=== PATIENT | male | born 1935 | race Caucasian/White ===

== ENCOUNTER 2019-10-27 15:44 | Emergency (ER) | payer OTHER ==
--- OUTSIDE RECORDS SUMMARY | 2019-10-27 15:46 | XMS REPORT ---
:1935 [facility] Address [address] [place] [address] [address] [place] [address] Care Team Providers Name Role Phone Unavailable Unavailable Unavailable Problems This patient has no known problems. Allergies, Adverse Reactions, Alerts This patient has no known allergies or adverse reactions. Medications This patient has no known medications.
[2019-10-27] MEDS ORDERED: ALBUTEROL 2.5 MG/3 ML NEB SOL ONE (16:15)
[2019-10-27] MEDS ORDERED: FUROSEMIDE 40 MG/4 ML VIAL ONE (16:16)
[2019-10-27] MEDS ORDERED: IPRATROPIUM BROM 0.5MG/2.5ML ONE (16:16)
[2019-10-27 16:37] LABS: Absolute Lymphocytes (CBC) 1.2 K/uL (0.7-4.9); Basophils % 0.2 % (0-1.3); Hematocrit 31.6 % (39.6-49.0); Lymphocytes % 9.8 % (15.3-44.8); MPV 8.6 fL (7.6-11.3)
[2019-10-27 16:38] LABS: Protime INR 1.66
[2019-10-27 16:59] LABS: ALT/SGPT 21 U/L (12-78); AST/SGOT 28 U/L (15-37); Alkaline Phosphatase 92 U/L (45-117); BUN Blood Urea Nitrogen 22 mg/dL (7-18); Bicarbonate 31 mmol/L (21-32); Bilirubin Direct 0.2 mg/dL (0-0.2); Bilirubin Total 0.7 mg/dL (0.2-1.0); Glucose Level 150 mg/dL (74-106); NT PRO-BNP 103 pg/mL (<450); Potassium 4.6 mmol/L (3.5-5.1); Protein, Total 6.6 g/dL (6.4-8.2); Sodium Level 140 mmol/L (136-145); Troponin (Emerg Dept Use Only) < 0.02 ng/mL (0.0-0.045)
--- NOTE | 2019-10-27 17:07 | RAD REPORT ---
EXAM DESCRIPTION: RAD - Chest Single View - 10/27/2019 4:22 pm CLINICAL HISTORY: Shortness of breath COMPARISON: None. TECHNIQUE: AP portable chest image was obtained 1618 hours . FINDINGS: Lung volumes are low. Portable technique and large body habitus contribute to limited visu alization. No focal mass or consolidation. Significant failure or volume overload are not suspected. Defibrillator is in place. Interstitial markings are prominent. On a baseline exam mild edema or infi ltrate cannot be excluded. Heart and vasculature are normal. No measurable pleural effusion and no pn eumothorax. No acute bony abnormality seen. No acute aortic findings suspected. IMPRESSION: Baseline exam shows prominent interstitial pattern. No focal mass or consolidation. Mild interstitial edema or infiltrate not excluded.
--- NOTE | 2019-10-27 18:38 | ER ---
Nurse's Notes [facility] Name: Tim Noriega Age: 84 yrs Sex: Male : 1935 Arrival Date: 10/27/2019 Time: 15:46 Bed 6 Private MD: Diagnosis: Chronic obstructive pulmonary disease with (acute) exacerbation Presentation: 10/27 15:48 Presenting complaint: Patient states: Increased pedal edema and shortness of breath x 3 ss days. Denies fever. Transition of care: patient was not received from another setting of care. Initial Sepsis Screen: Does the patient meet any 2 criteria? RR > 20 per min. HR > 90 bpm. Does the patient have a suspected source of infection? No. Patient's initial sepsis screen is negative. 15:48 Acuity: EARLINE 2 ss 15:48 Method Of Arrival: Wheelchair ss 15:53 Onset of symptoms was October 27, 2019. Risk Assessment: Do you want to hurt yourself tw2 or someone else? Patient reports no desire to harm self or others. Care prior to arrival: None. Triage Assessment: 16:14 General: Appears in no apparent distress. obese, well groomed, Behavior is calm, tw2 cooperative, appropriate for age. Pain: Denies pain. Respiratory: Reports shortness of breath cough that is Onset: The symptoms/episode began/occurred 3 days ago, the patient has moderate shortness of breath. Historical: - Allergies: 16:07 No Known Allergies; ss - Home Meds: 16:07 Finasteride 5 mg take 1 PO tab DAILY [Active]; tamsulosin 0.4 mg oral cp24 1 cap once ss daily [Active]; furosemide 40 mg Oral tab 1 tab once daily [Active]; amiodarone 100 mg Oral tab 1 tab 2 times per day [Active]; spironolactone 25 mg Oral tab 0.5 tab 2 times per day [Active]; cephalexin 500 mg Oral tab 1 tab daily [Active]; glimepiride 4 mg Oral tab 1 tab once daily [Active]; Entresto 49-51 mg oral tab 1 tab 2 times per day [Active]; omeprazole 20 mg Oral cpDR 1 cap once daily [Active]; carvedilol 12.5 mg oral tab 1 tab 2 times per day [Active]; Trulicity 1.5 mg/ 0.5mL inject 1 pen weekly [Active]; metformin 500 mg Oral tab 1 tab three times a day [Active]; Xarelto 15 mg oral tab daily [Active]; atorvastatin 40 mg oral tab 1 tab once daily [Active]; montelukast 10 mg oral tab 1 tab once daily [Active]; Januvia 50 mg oral tab 1 tabs once daily [Active]; trelegy Ellipta 100-62.5-25 mcg inahle 1 puff DAILY [Active]; ProAir HFA 108 mcg INH inhale 2 puffs Q4h PRN [Active]; albuterol sulfate 2.5 mg /3 mL (0.083 %) Nebulizer nebu 3 mL twice a day [Active]; - PMHx: 15:53 COPD; CHF; tw2 16:07 CHF; COPD; High Cholesterol; ss - PSHx: 16:07 cardiac stents; ss - Immunization history:: Adult Immunizations. - Social history:: Smoking status: . - Ebola Screening: : Patient denies travel to an Ebola-affected area in the 21 days before illness onset. Screenin:52 Abuse screen: Denies threats or abuse. Nutritional screening: No deficits noted. tw2 Tuberculosis screening: No symptoms or risk factors identified. Fall Risk Secondary diagnosis (15 points) impaired mobility. Assessment: 16:27 General: Appears in no apparent distress. obese, well groomed, Behavior is calm, tw2 cooperative, agitated. Neuro: Level of Consciousness is awake, alert, obeys commands, Oriented to person, place, time, situation. Cardiovascular: Heart tones S1 S2 Patient's skin is warm and dry. Rhythm is regular. Respiratory: Reports shortness of breath at rest on exertion cough that is productive, Airway is patent Respiratory effort is even, unlabored, Respiratory pattern is regular, symmetrical, Breath sounds with wheezes bilaterally. GI: Abdomen is round non-distended, obese, Bowel sounds present X 4 quads. : No signs and/or symptoms were reported regarding the genitourinary system. EENT: No signs and/or symptoms were reported regarding the EENT system. Derm: Skin is dry. Musculoskeletal: Range of motion: intact in all extremities. 16:41 Reassessment: Patient appears in no apparent distress at this time. No changes from tw2 previously documented assessment. Patient and/or family updated on plan of care and expected duration. Pain level reassessed. 17:33 Reassessment: Patient appears in no apparent distress at this time. No changes from tw2 previously documented assessment. Patient and/or family updated on plan of care and expected duration. Pain level reassessed. 18:23 Reassessment: Patient appears in no apparent distress at this time. No changes from tw2 previously documented assessment. Patient and/or family updated on plan of care and expected duration. Pain level reassessed. 19:10 Reassessment: Patient appears in no apparent distress at this time. Patient and/or jb4 family updated on plan of care and expected duration. Pain level reassessed. Patient is alert, oriented x 3, equal unlabored respirations, skin warm/dry/pink. 19:45 Reassessment: Patient appears in no apparent distress at this time. Patient and/or jb4 family updated on plan of care and expected duration. Pain level reassessed. Patient is alert, oriented x 3, equal unlabored respirations, skin warm/dry/pink. Patient denies pain at this time. Vital Signs: 15:57 BP 111 / 52; Pulse 91; Resp 24; Temp 97.5(TE); Pulse Ox 82% on R/A; Weight 133.81 kg; ss Height 5 ft. 11 in. (180.34 cm); Pain 0/10; 16:41 BP 103 / 48; Pulse 63; Resp 15; Pulse Ox 100% on Nebulizer Mask; tw2 17:33 BP 103 / 48; Pulse 63; Resp 17; Pulse Ox 99% on 3 lpm NC; tw2 18:23 BP 85 / 60; Pulse 60; Resp 20; Pulse Ox 97% on R/A; tw2 19:45 BP 97 / 59; Pulse 60; Resp 20; Pulse Ox 97% on 3 lpm NC; jb4 15:57 Body Mass Index 41.14 (133.81 kg, 180.34 cm) ED Course: 15:46 Patient arrived in ED. as 15:50 Perry Newton NP is PHCP. pm1 15:50 Rachid Wright MD is Attending Physician. pm1 15:52 Donna Nuñez RN is Primary Nurse. tw2 15:52 Placed in gown. Bed in low position. Call light in reach. Adult w/ patient. Cardiac tw2 monitor on. Pulse ox on. NIBP on. 15:52 Arm band placed on. tw2 15:59 Triage completed. ss 16:19 XRAY Chest (1 view) In Process Unspecified. EDMS 16:26 Missed attempt(s): 22 gauge in left hand. Bleeding controlled, band aid applied, tw2 catheter tip intact. Missed attempt(s): 22 gauge in right antecubital area. per MAGGIE,Tech. Bleeding controlled, band aid applied, catheter tip intact. 19:10 Report given to CRIS Meraz, Rocephin IV and discharge pending. tw2 19:45 No provider procedures requiring assistance completed. IV discontinued, intact, jb4 bleeding controlled, No redness/swelling at site. Pressure dressing applied. Administered Medications: 09:21 Drug: Rocephin 1 grams Route: IV; Rate: calculated rate; Site: left antecubital; jb4 19:24 Follow up: Response: No adverse reaction; IV Status: Completed infusion; IV Intake: [id number] 16:26 Drug: Albuterol - atroVENT (3:1) (2.5 mg - 0.5 mg) 3 ml Route: Nebulizer; tw2 19:14 Follow up: Response: No adverse reaction tw2 16:41 Drug: Lasix 40 mg Route: IVP; Site: left antecubital; tw2 19:14 Follow up: Response: No adverse reaction tw2 Intake: 19:24 IV: 10ml; Total: 10ml. jb4 Outcome: 18:37 Discharge ordered by MD. pm1 19:45 Discharged to home via wheelchair, with family. jb4 19:45 Condition: stable 19:45 Discharge instructions given to patient, family, Instructed on discharge instructions, follow up and referral plans. medication usage, Demonstrated understanding of instructions, follow-up care, medications, Prescriptions given X 1. 19:47 Patient left the ED. jb4 Addendum: 11/01/2019 16:56 Addendum: Other Pt admitted on 10/30. s s Signatures: Dispatcher [employer] Nubia Walls Shelby, RN RN ss Perry Newton, JOSE CUSTOMER ACCOUNT MANAGER pm1 Donna Nuñez RN RN tw2 Kt Nassar, CRIS RN jb4
--- NOTE | 2019-10-27 18:38 | EDPHYS ---
Physician Documentation [facility] Name: Tim Noriega Age: 84 yrs Sex: Male : 1935 Arrival Date: 10/27/2019 Time: 15:46 Bed 6 Private MD: ED Physician Rachid Wright HPI: 10/27 16:07 This 84 yrs old Male presents to ER via Wheelchair with complaints of pm1 Shortness Of Breath. 16:07 The patient has shortness of breath at rest. Onset: The symptoms/episode began/occurred pm1 Chronic shortness of breath, history of CHF and COPD, that became worse the past 3 days. Duration: The symptoms are continuous, and are steadily getting worse. The patient's shortness of breath is aggravated by exertion, is alleviated by nothing, typically inhaler therapy helps. Associated signs and symptoms: Pertinent positives: productive cough, wheezing, sore throat, Pertinent negatives: chest pain, fever, nausea, vomiting. Severity of symptoms: in the emergency department the symptoms are worse. The patient has experienced similar episodes in the past, a few times. Historical: - Allergies: 16:07 No Known Allergies; ss - Home Meds: 16:07 Finasteride 5 mg take 1 PO tab DAILY [Active]; tamsulosin 0.4 mg oral cp24 1 cap once ss daily [Active]; furosemide 40 mg Oral tab 1 tab once daily [Active]; amiodarone 100 mg Oral tab 1 tab 2 times per day [Active]; spironolactone 25 mg Oral tab 0.5 tab 2 times per day [Active]; cephalexin 500 mg Oral tab 1 tab daily [Active]; glimepiride 4 mg Oral tab 1 tab once daily [Active]; Entresto 49-51 mg oral tab 1 tab 2 times per day [Active]; omeprazole 20 mg Oral cpDR 1 cap once daily [Active]; carvedilol 12.5 mg oral tab 1 tab 2 times per day [Active]; Trulicity 1.5 mg/ 0.5mL inject 1 pen weekly [Active]; metformin 500 mg Oral tab 1 tab three times a day [Active]; Xarelto 15 mg oral tab daily [Active]; atorvastatin 40 mg oral tab 1 tab once daily [Active]; montelukast 10 mg oral tab 1 tab once daily [Active]; Januvia 50 mg oral tab 1 tabs once daily [Active]; trelegy Ellipta 100-62.5-25 mcg inahle 1 puff DAILY [Active]; ProAir HFA 108 mcg INH inhale 2 puffs Q4h PRN [Active]; albuterol sulfate 2.5 mg /3 mL (0.083 %) Nebulizer nebu 3 mL twice a day [Active]; - PMHx: 15:53 COPD; CHF; tw2 16:07 CHF; COPD; High Cholesterol; ss - PSHx: 16:07 cardiac stents; ss - Immunization history:: Adult Immunizations. - Social history:: Smoking status: . - Ebola Screening: : Patient denies travel to an Ebola-affected area in the 21 days before illness onset. ROS: 16:12 Constitutional: Negative for fever, chills, and weight loss, Eyes: Negative for injury, pm1 pain, redness, and discharge. 16:12 Neck: Negative for injury, pain, and swelling. 16:12 Abdomen/GI: Negative for abdominal pain, nausea, vomiting, diarrhea, and constipation, Back: Negative for injury and pain, MS/Extremity: Negative for injury and deformity, Skin: Negative for injury, rash, and discoloration, Neuro: Negative for headache, weakness, numbness, tingling, and seizure. 16:12 ENT: Positive for sore throat, Negative for drainage from ear(s), ear pain. 16:12 Cardiovascular: Positive for edema, increased from baseline to lower extermities, Negative for chest pain. 16:12 Respiratory: Positive for cough, with yellow sputum, shortness of breath, wheezing. Exam: 16:12 Constitutional: This is a well developed, well nourished patient who is awake, alert, pm1 and in no acute distress. Head/Face: Normocephalic, atraumatic. Eyes: Pupils equal round and reactive to light, extra-ocular motions intact. Lids and lashes normal. Conjunctiva and sclera are non-icteric and not injected. Cornea within normal limits. Periorbital areas with no swelling, redness, or edema. ENT: Nares patent. No nasal discharge, no septal abnormalities noted. Tympanic membranes are normal and external auditory canals are clear. Oropharynx with no redness, swelling, or masses, exudates, or evidence of obstruction, uvula midline. Mucous membranes moist. Neck: Trachea midline, no thyromegaly or masses palpated, and no cervical lymphadenopathy. Supple, full range of motion without nuchal rigidity, or vertebral point tenderness. No Meningismus. Chest/axilla: Normal chest wall appearance and motion. Nontender with no deformity. No lesions are appreciated. 16:12 Abdomen/GI: Soft, non-tender, with normal bowel sounds. No distension or tympany. No guarding or rebound. No evidence of tenderness throughout. Back: No spinal tenderness. No costovertebral tenderness. Full range of motion. Skin: Warm, dry with normal turgor. Normal color with no rashes, no lesions, and no evidence of cellulitis. MS/ Extremity: Pulses equal, no cyanosis. Neurovascular intact. Full, normal range of motion. 16:12 Cardiovascular: Rate: normal, Rhythm: regular, Pulses: no pulse deficits are appreciated, Edema: pedal edema, that is mild. 16:12 Respiratory: the patient does not display signs of respiratory distress, Respirations: normal, Breath sounds: rhonchi, that are mild, are scattered. 16:12 Neuro: Orientation: is normal, Motor: is normal, moves all fours, Sensation: is normal, no obvious gross deficits. Vital Signs: 15:57 BP 111 / 52; Pulse 91; Resp 24; Temp 97.5(TE); Pulse Ox 82% on R/A; Weight 133.81 kg; ss Height 5 ft. 11 in. (180.34 cm); Pain 0/10; 16:41 BP 103 / 48; Pulse 63; Resp 15; Pulse Ox 100% on Nebulizer Mask; tw2 17:33 BP 103 / 48; Pulse 63; Resp 17; Pulse Ox 99% on 3 lpm NC; tw2 18:23 BP 85 / 60; Pulse 60; Resp 20; Pulse Ox 97% on R/A; tw2 19:45 BP 97 / 59; Pulse 60; Resp 20; Pulse Ox 97% on 3 lpm NC; jb4 15:57 Body Mass Index 41.14 (133.81 kg, 180.34 cm) MDM: 15:56 Patient medically screened. pm1 18:35 Data reviewed: vital signs. Data interpreted: Pulse oximetry: on room air is 97 %. pm1 Interpretation: normal. Counseling: I had a detailed discussion with the patient and/or guardian regarding: the historical points, exam findings, and any diagnostic results supporting the discharge/admit diagnosis, lab results, radiology results, the need for outpatient follow up, to return to the emergency department if symptoms worsen or persist or if there are any questions or concerns that arise at home. 18:35 ED course: Patient shortness of breath at baseline and does not feel that he needs to pm1 stay in the hospital. Patient's symptoms improved with treatment in the ER. 18:36 ED course: Primary impression is COPD exacerbation with some mild volume overload with pm1 CHF. Discussed with patient to increase Lasix to 40 mg PO BID for the next 2 days and follow up with his PCP. Daily weights. Will discharge to home with antibiotics, but holding steroid treatment. Family notes that it increases his blood sugar high and causes AMS. Patient has albuterol nebulizer and inhaler. Uses Coricidin for cough. 10/27 15:58 Order name: Basic Metabolic Panel; Complete Time: 17:08 pm10/27 15:58 Order name: CBC with Diff; Complete Time: 16:44 pm10/27 15:58 Order name: LFT's; Complete Time: 17:08 pm10/27 15:58 Order name: Magnesium; Complete Time: 17:08 pm10/27 15:58 Order name: NT PRO-BNP; Complete Time: 17:08 pm10/27 15:58 Order name: PT-INR; Complete Time: 16:44 pm10/27 15:58 Order name: Troponin (emerg Dept Use Only); Complete Time: 17:08 pm10/27 15:58 Order name: Blood Culture Adult (2) pm10/27 15:58 Order name: Flu; Complete Time: 17:08 pm10/27 16:03 Order name: Procalcitonin; Complete Time: 17:15 pm10/27 16:03 Order name: Lactate; Complete Time: 17:08 pm10/27 16:03 Order name: Strep; Complete Time: 16:44 pm10/27 16:14 Order name: Sputum Culture pm10/27 16:41 Order name: Throat Culture EDSC 10/27 15:58 Order name: XRAY Chest (1 view); Complete Time: 17:08 pm1 10/27 15:58 Order name: EKG; Complete Time: 15:59 pm1 10/27 15:58 Order name: Cardiac monitoring; Complete Time: 16:11 pm1 10/27 15:58 Order name: IV Saline Lock; Complete Time: 16:11 pm1 10/27 15:58 Order name: Labs collected and sent; Complete Time: 16:11 pm1 10/27 15:58 Order name: O2 Per Protocol; Complete Time: 16:11 pm1 10/27 15:58 Order name: O2 Sat Monitoring; Complete Time: 16:11 pm1 Administered Medications: 09:21 Drug: Rocephin 1 grams Route: IV; Rate: calculated rate; Site: left antecubital; jb4 19:24 Follow up: Response: No adverse reaction; IV Status: Completed infusion; IV Intake: [id number] 16:26 Drug: Albuterol - atroVENT (3:1) (2.5 mg - 0.5 mg) 3 ml Route: Nebulizer; tw2 19:14 Follow up: Response: No adverse reaction tw2 16:41 Drug: Lasix 40 mg Route: IVP; Site: left antecubital; tw2 19:14 Follow up: Response: No adverse reaction tw2 Disposition: 10/28 07:18 Co-signature as Attending Physician, Rachid Wright MD. rn Disposition: 10/27/19 18:37 Discharged to Home. Impression: Chronic obstructive pulmonary disease with (acute) exacerbation. - Condition is Stable. - Discharge Instructions: Heart Failure, Chronic Obstructive Pulmonary Disease Exacerbation. - Prescriptions for cefdinir 300 mg Oral capsule - take 1 capsule by ORAL route every 12 hours for 10 days; 20 capsule. - Medication Reconciliation Form, Thank You Letter, Antibiotic Education, Prescription Opioid Use form. - Follow up: Emergency Department; When: As needed; Reason: Worsening of condition. Follow up: Private Physician; When: 2 - 3 days; Reason: Recheck today's complaints, Continuance of care, Re-evaluation by your physician. - Problem is new. - Symptoms have improved. Signatures: Dispatcher [employer] EDRachid Garcia MD MD rn Smirch, Shelby, RN RN ss Perry Newton, PATTERN LAYOUT WORKER PATTERN LAYOUT WORKER pm1 Donna Nuñez RN RN tw2 [place], Kt, RN RN jb4 Corrections: (The following items were deleted from the chart) 10/27 19:47 18:37 10/27/2019 18:37 Discharged to Home. Impression: Chronic obstructive pulmonary jb4 disease with (acute) exacerbation. Condition is Stable. Forms are Medication Reconciliation Form, Thank You Letter, Antibiotic Education, Prescription Opioid Use. Follow up: Emergency Department; When: As needed; Reason: Worsening of condition. Follow up: Private Physician; When: 2 - 3 days; Reason: Recheck today's complaints, Continuance of care, Re-evaluation by your physician. Problem is new. Symptoms have improved. pm1
[2019-10-27] MEDS ORDERED: CEFTRIAXONE/SWI 1gm 1 GM/10 ML SYR ONE (19:21)
[2019-10-27 20:01] VITALS: TEMP 97.5
[2019-10-27 20:05] VITALS: BP 85/60; O2SAT 97
--- NOTE | 2019-10-28 06:34 | EKG ---
Test Date: 2019-10-27 Test Time: 15:57:13 Telephone Interviewer: MAGGIE MEASUREMENT RESULTS: Intervals: Rate: 94 [place]: 262 QRSD: 102 QT: 402 QTc: 502 [place]: P: 36 [place]: 262 QRS: 46 T: 119 INTERPRETIVE STATEMENTS: Atrial-paced rhythm with prolonged AV conduction Low voltage QRS Nonspecific ST and T wave abnormality Abnormal ECG No previous ECG available for comparison Electronically Signed On 10-28-19 06:33:59 MODELING INSTRUCTOR by Marko Vázquez
== END 2019-10-27 19:47 | disposition home or self-care (01) ==
LOC: ER 15:44
DX: J44.1 Chronic obstructive pulmonary disease with (acute) exacerbation (principal); E78.00 Pure hypercholesterolemia, unspecified; I50.9 Heart failure, unspecified; Z79.01 Long term (current) use of anticoagulants; Z95.818 Presence of other cardiac implants and grafts
CPT/HCPCS: 36415; 71045; 80048; 80076; 83605; 83735; 83880; 84145; 84484; 85025; 85610; 87040; 87070; 87077; 87081; 87184; 87186; 87205; 87804; 93005; 94640; 96365; 96366; 96375; 99285; J0696; J1940

== ENCOUNTER 2019-10-30 10:12 | Inpatient (IN) | payer OTHER ==
--- OUTSIDE RECORDS SUMMARY | 2019-10-30 10:14 | XMS REPORT ---
:1935 [facility] [address]. Valdes [address] [place] [id number] Care Team Providers Name Role Phone Unavailable Unavailable Unavailable Problems This patient has no known problems. Allergies, Adverse Reactions, Alerts This patient has no known allergies or adverse reactions. Medications This patient has no known medications.
[2019-10-30] MEDS ORDERED: METHYLPREDNISOLONE 125 MG INJ ONE (10:33)
[2019-10-30] MEDS ORDERED: LEVALBUTEROL 1.25 MG/3 ML NEB ONE (10:33)
[2019-10-30] MEDS ORDERED: FUROSEMIDE 20 MG/ 2ML VIAL ONE (10:33)
[2019-10-30] MEDS ORDERED: FAMOTIDINE 20 MG/2 ML VIAL IV ONE (10:33)
[2019-10-30] MEDS ORDERED: IPRATROPIUM BROM 0.5MG/2.5ML ONE (10:33)
[2019-10-30] MEDS ORDERED: CEFTRIAXONE/SWI 1gm 1 GM/10 ML SYR ONE ×2 (10:34→13:25)
--- NOTE | 2019-10-30 11:00 | RAD REPORT ---
EXAM DESCRIPTION: RAD - Chest Single View - 10/30/2019 10:49 am CLINICAL HISTORY: DYSPNEA Chest pain. COMPARISON: Chest Single View dated 10/27/2019 FINDINGS: Portable technique limits examination quality. Mild interstitial pulmonary edema is seen. The heart is moderately enlarged with a multilead pacer/de fibrillator device. No displaced fractures. IMPRESSION: Mild CHF versus volume overload.
[2019-10-30 11:24] LABS: Absolute Lymphocytes (CBC) 1.3 K/uL (0.7-4.9); Basophils % 0.3 % (0-1.3); Hematocrit 30.5 % (39.6-49.0); Lymphocytes % 13.6 % (15.3-44.8); MPV 8.1 fL (7.6-11.3)
[2019-10-30] MEDS ORDERED: NA CHLORIDE 0.9% 1,000 ML ONE (11:42)
[2019-10-30 11:50] LABS: ALT/SGPT 21 U/L (12-78); AST/SGOT 13 U/L (15-37); Albumin 3.1 g/dL (3.4-5.0); Alkaline Phosphatase 93 U/L (45-117); BUN Blood Urea Nitrogen 26 mg/dL (7-18); Bicarbonate 36 mmol/L (21-32); Bilirubin Direct 0.2 mg/dL (0-0.2); Bilirubin Total 0.5 mg/dL (0.2-1.0); Glucose Level 169 mg/dL (74-106); NT PRO-BNP 121 pg/mL (<450); Potassium 4.3 mmol/L (3.5-5.1); Protein, Total 6.8 g/dL (6.4-8.2); Sodium Level 142 mmol/L (136-145); Troponin (Emerg Dept Use Only) < 0.02 ng/mL (0.0-0.045)
[2019-10-30 12:12] LABS: Urine Blood NEGATIVE (NEG); Urine Glucose NEGATIVE (NEG); Urine Protein NEGATIVE (NEG); Urine Specific Gravity 1.015 (1.005-1.030)
--- NOTE | 2019-10-30 12:19 | ER ---
Nurse's Notes [facility] Name: Tim Noriega Age: 84 yrs Sex: Male : 1935 Arrival Date: 10/30/2019 Time: 10:13 Bed 3 Private MD: Diagnosis: Dyspnea;Unspecified combined systolic (congestive) and diastolic (congestive) heart failure;Chronic obstructive pulmonary disease with (acute) exacerbation;Obesity, unspecified;Unspecified kidney failure;Anemia, unspecified Presentation: 10/30 10:13 Presenting complaint: Patient states: shortness of breath continues, low saturation jl7 reported in 80's at home. Pt came in on 3 lpm. recently seen here at [facility]. Transition of care: patient was not received from another setting of care. Onset of symptoms was October 27, 2019. 10:13 Method Of Arrival: Wheelchair jl7 10:13 Acuity: EARLINE 3 jl7 10:20 Risk Assessment: Do you want to hurt yourself or someone else? Patient reports no jl7 desire to harm self or others. Initial Sepsis Screen: Does the patient meet any 2 criteria? RR > 20 per min. Does the patient have a suspected source of infection? Yes: Productive cough/pneumonia. Care prior to arrival: None. 12:09 Acuity: EARLINE 2 iw Historical: - Allergies: 10:16 No Known Allergies; jl7 - Home Meds: 15:46 Finasteride 5 mg take 1 PO tab DAILY [Active]; tamsulosin 0.4 mg Oral cp24 1 cap once jl7 daily [Active]; furosemide 40 mg Oral tab 1 tab once daily [Active]; amiodarone 100 mg Oral tab 1 tab 2 times per day [Active]; spironolactone 25 mg Oral tab 0.5 tab 2 times per day [Active]; cephalexin 500 mg Oral tab 1 tab daily [Active]; glimepiride 4 mg Oral tab 1 tab [Active]; Entresto 49-51 mg Oral tab 1 tab 2 times per day [Active]; omeprazole 20 mg Oral cpDR 1 cap once daily [Active]; carvedilol 12.5 mg Oral tab 1 tab 2 times per day [Active]; Vitamin B-12 Oral [Active]; Trulicity 1.5 mg/ 0.5mL inject 1 pen weekly [Active]; melatonin 5 mg Oral tab [Active]; Vitamin D Oral [Active]; buspirone 5 mg Oral tab 1 tab 2 times per day [Active]; metformin 500 mg Oral tab 1 tab three times a day [Active]; Xarelto 15 mg Oral tab daily [Active]; atorvastatin 40 mg Oral tab 1 tab once daily [Active]; montelukast 10 mg Oral tab 1 tab once daily [Active]; Januvia 50 mg Oral tab 1 tabs once daily [Active]; trelegy Ellipta 100-62.5-25 mcg inahle 1 puff DAILY [Active]; ProAir HFA 108 mcg INH inhale 2 puffs Q4h PRN [Active]; albuterol sulfate 2.5 mg /3 mL (0.083 %) Inhl nebu 3 mL twice a day [Active]; - PMHx: 10:16 CHF; COPD; High Cholesterol; jl7 15:46 Pacemaker; Diabetes - IDDM; jl7 - PSHx: 15:46 cardiac stents; jl7 - Immunization history:: Adult Immunizations unknown. - Family history:: not pertinent. - Social history:: Smoking status: Patient/guardian denies using tobacco. - Ebola Screening: : No symptoms or risks identified at this time. Screenin:20 Abuse screen: Denies threats or abuse. Denies injuries from another. Nutritional jl7 screening: No deficits noted. Tuberculosis screening: No symptoms or risk factors identified. Fall Risk No fall in past 12 months (0 pts). No secondary diagnosis (0 pts). IV access (20 points). Ambulatory Aid- Crutches/Cane/Walker (15 pts). Gait- Weak (10 pts.). Mental Status- Oriented to own ability (0 pts). Total Monson Fall Scale indicates High Risk Score (45 or more points). Fall prevention measures have been instituted. Side Rails Up X 2 Placed Close to Nursing Station Frequent Obs/Assessments Occuring Family Present and informed to notify staff if the need to leave the bedside As available patient and family educated on Fall Prevention Program and Strategies. Assessment: 10:20 General: Appears distressed, uncomfortable, ill, obese, Behavior is calm, cooperative, jl7 appropriate for age. Pain: Denies pain. Neuro: Level of Consciousness is awake, obeys commands, drowsy. Oriented to person, place, time, situation. Cardiovascular: Rhythm is atrial pacer. Respiratory: Airway is patent Respiratory effort is even, labored, shallow, Respiratory pattern is symmetrical, tachypnea Breath sounds are diminished bilaterally. audible wheezes noted. GI: Abdomen is round obese, Bowel sounds present X 4 quads. : No signs and/or symptoms were reported regarding the genitourinary system. EENT: No signs and/or symptoms were reported regarding the EENT system. Derm: Skin is pink, warm \T\ dry. 11:40 Reassessment: ERD notified of BP, new orders received. Neuro: Level of Consciousness is jl7 awake, obeys commands, Drowsy, responds appropriately to verbal stimuli. Oriented to person, place, time, situation. Cardiovascular: Patient's skin is warm and dry. Pulses are palpable in right radial artery and left radial artery are 3+ in right radial artery and left radial artery Rhythm is atrial pacer. 11:50 Reassessment: Pts daughter, Meredith, reports pt got severely agitated the last time he jl7 was given IV steroids. 125 mg Solu-medrol administered over 8 minutes at this time. 12:10 Reassessment: ERD at bedside discussing results, new orders and POC. jl7 12:25 Reassessment: BiPap placed on pt, 16/8 and 35% O2. jl7 13:30 Reassessment: Patient appears in no apparent distress at this time. Patient and/or jl7 family updated on plan of care and expected duration. Pain level reassessed. Patient is alert, oriented x 3, equal unlabored respirations, skin warm/dry/pink. Patient states feeling better. Patient states symptoms have improved. 14:30 Reassessment: Patient appears in no apparent distress at this time. No changes from jl7 previously documented assessment. Patient and/or family updated on plan of care and expected duration. Pain level reassessed. Patient is alert, oriented x 3, equal unlabored respirations, skin warm/dry/pink. 15:34 Reassessment: Daughter Meredith phone number [phone], she will return prior to 1900. jl7 16:09 Reassessment: Patient appears in no apparent distress at this time. No changes from jl7 previously documented assessment. Patient and/or family updated on plan of care and expected duration. Pain level reassessed. Patient is alert, oriented x 3, equal unlabored respirations, skin warm/dry/pink. Patient denies pain at this time. 17:00 Reassessment: Patient appears in no apparent distress at this time. No changes from jl7 previously documented assessment. Patient and/or family updated on plan of care and expected duration. Pain level reassessed. Patient is alert, oriented x 3, equal unlabored respirations, skin warm/dry/pink. Vital Signs: 10:16 Pulse 84; Resp 26; Pulse Ox 86% on R/A; jl7 10:17 BP 111 / 65; Pulse 80; Resp 25; Pulse Ox 98% on 3 lpm NC; jl7 10:21 Temp 98.3(O); em1 10:30 BP 104 / 53; Pulse 61; Resp 28 S; Pulse Ox 97% on 3 lpm NC; jl7 11:00 BP 105 / 49; Pulse 62; Resp 25 S; Pulse Ox 99% on 3 lpm NC; Pain 0/10; jl7 11:15 BP 103 / 57; Pulse 79; Resp 29 S; Temp 99.1(O); Pulse Ox 97% on 3 lpm NC; jl7 11:39 BP 87 / 45; Pulse 77; Resp 24 S; Pulse Ox 94% on 3 lpm NC; aa5 12:00 BP 76 / 53; Pulse 81; Resp 24 S; Pulse Ox 96% on 3 lpm NC; jl7 12:15 BP 90 / 55; Pulse 62; Resp 22 S; Pulse Ox 96% on 3 lpm NC; jl7 12:30 BP 96 / 52; Pulse 61; Resp 23 S; Pulse Ox 95% on 3 lpm NC; jl7 12:45 BP 88 / 71; Pulse 61; Resp 21; Pulse Ox 95% on 35% BiPAP; jl7 13:00 BP 94 / 49; Pulse 60; Resp 22; Pulse Ox 98% on 35% BiPAP; jl7 13:30 BP 106 / 58; Pulse 63; Resp 27 S; Pulse Ox 97% on 35% BiPAP; jl7 14:00 BP 99 / 64; Pulse 62; Resp 19 S; Pulse Ox 97% on 35% BiPAP; jl7 14:30 BP 102 / 46; Pulse 78; Resp 19 S; Pulse Ox 98% on 35% BiPAP; jl7 15:00 BP 105 / 44; Pulse 62; Resp 23 S; Pulse Ox 96% on 35% BiPAP; jl7 15:30 BP 107 / 49; Pulse 61; Resp 22 S; Pulse Ox 97% on 35% BiPAP; jl7 16:00 BP 117 / 53; Pulse 74; Resp 24 S; Pulse Ox 96% on 35% BiPAP; jl7 17:00 BP 106 / 54; Pulse 65; Resp 18 S; Pulse Ox 95% on 35% BiPAP; Pain 0/10; jl7 11:39 Dr. Nye notified of decreased BP aa5 ED Course: 10:13 Patient arrived in ED. jl7 10:15 Triage completed. jl7 10:17 Dhaval Nye MD is Attending Physician. nabil 10:20 Patient has correct armband on for positive identification. Placed in gown. Bed in low jl7 position. Call light in reach. Side rails up X 1. casting machine set up operator on. Pulse ox on. NIBP on. Warm blanket given. 10:24 Madalyn Joseph RN is Primary Nurse. jl7 10:30 EKG done, by management services technician. reviewed by Dhaval Nye MD. at1 10:40 First set of blood cultures drawn by me. Missed attempt(s): 20 gauge in right forearm. jl7 Bleeding controlled, band aid applied, catheter tip intact. 10:50 XRAY Chest (1 view) In Process Unspecified. EDMS 11:00 Inserted saline lock: 22 gauge in right hand, using aseptic technique. Blood collected. jl7 11:00 Initial lab(s) drawn, by ks, sent to lab. Second set of blood cultures drawn by me. jl7 11:30 Straight cath inserted, using sterile technique, 16 Fr. Specimen obtained. Returned jl7 clear yellow urine. Patient tolerated well. 11:30 Urine collected: straight cath specimen, clear, Amount Returned: 800mL. jl7 11:52 Arm band placed on right wrist. jl7 12:18 Steffany Rae MD is Hospitalizing Provider. nabil 12:50 Admitting physician to see patient. jl7 13:10 Echocardiogram with doppler done by senior technical editor. tc 13:44 Acosta cath inserted, using sterile technique, 16 Fr., by ks, balloon inflated, to jl7 gravity drainage, returned clear yellow urine. Patient tolerated well. 17:42 No provider procedures requiring assistance completed. Patient admitted, IV remains in jl7 place. intact, No redness/swelling at site. Administered Medications: 10:30 Drug: Xopenex 3.75 mg Route: Inhalation; jl7 11:45 Follow up: Response: No adverse reaction jl7 10:30 Drug: AtroVENT Aerosol 0.5 mg Route: Inhalation; jl7 11:45 Follow up: Response: No adverse reaction jl7 11:05 Drug: Lasix 20 mg Route: IVP; Site: right hand; jl7 11:20 Follow up: Response: No adverse reaction jl7 11:35 Drug: Rocephin 1 grams Route: IV; Rate: per protocol; Site: right hand; jl7 11:38 Follow up: Response: No adverse reaction; IV Status: Completed infusion jl7 11:39 Drug: Pepcid 20 mg Route: IVP; Site: right hand; jl7 15:31 Follow up: Response: No adverse reaction jl7 11:40 Drug: NS 0.9% 250 ml Route: IV; Rate: bolus; Site: right hand; aa5 11:55 Follow up: Response: No adverse reaction; IV Status: Completed infusion; IV Intake: jl7 250ml 11:50 Drug: SOLU-Medrol 125 mg Route: IVP; Site: right hand; jl7 13:15 Follow up: Response: No adverse reaction jl7 12:05 Drug: NS 0.9% 250 ml Route: IV; Rate: bolus; Site: right hand; jl7 12:20 Follow up: Response: No adverse reaction; IV Status: Completed infusion; IV Intake: jl7 250ml 13:43 Drug: Rocephin 1 grams Route: IV; Rate: per protocol; Site: right hand; jl7 13:46 Follow up: Response: No adverse reaction; IV Status: Completed infusion jl7 17:41 Not Given (Physician Discretion): NS 0.9% 500 ml IV at bolus once jl7 Intake: 11:55 IV: 250ml; Total: 250ml. jl7 12:20 IV: 250ml; Total: 500ml. jl7 Output: 11:30 Urine: 800ml (Straight Cath); Total: 800ml. jl7 13:58 Urine: 460ml (Acosta); Total: 1260ml. em1 Outcome: 12:19 Decision to Hospitalize by Provider. nabil 17:42 Admitted to ICU accompanied by nurse, accompanied by cade, via stretcher, room 3, with jl7 oxygen, on monitor, with chart, Report called to CRIS Cotto 17:42 Condition: stable 17:42 Discharge instructions given to patient, family, Instructed on the need for admit, Demonstrated understanding of instructions. 17:46 Patient left the ED. jl7 Signatures: Dispatcher [employer] EDCA Dhaval Nye MD MD cha Williams, Irene, RN Jose Manuel Pinto em1 Ijeoma Dacosta RN RN aa5 Bhavna Collins, lidar scientist EKG Tat1 Tran Green, lidar scientist EKG Ttc Madalyn Joseph RN RN jl7 Corrections: (The following items were deleted from the chart) 13:45 11:30 Straight cath inserted, using sterile technique, 16 Fr. Specimen obtained. jl7 Returned clear yellow urine. Patient tolerated well. jl7 17:01 16:00 BP 117 / 53; Pulse 74bpm; Resp 24bpm; Spontaneous; Pulse Ox 96% RA; jl7 jl7
--- NOTE | 2019-10-30 12:20 | EDPHYS ---
Physician Documentation [facility] Name: Tim Noriega Age: 84 yrs Sex: Male : 1935 Arrival Date: 10/30/2019 Time: 10:13 Bed 3 Private MD: ED Physician Dhaval Nye HPI: 10/30 10:26 This 84 yrs old Male presents to ER via Wheelchair with complaints of nabil Shortness Of Breath. 10:26 The patient has shortness of breath at rest, with light activity. Onset: The nabil symptoms/episode began/occurred 3 day(s) ago. Duration: The symptoms are continuous, and are steadily getting worse. The patient's shortness of breath is aggravated by coughing, exertion, light activity, supine position, talking, walking. Associated signs and symptoms: Pertinent positives: non-productive cough. Severity of symptoms: At their worst the symptoms were mild moderate in the emergency department the symptoms are unchanged. The patient has experienced similar episodes in the past, multiple times. Historical: - Allergies: 10:16 No Known Allergies; jl7 - Home Meds: 15:46 Finasteride 5 mg take 1 PO tab DAILY [Active]; tamsulosin 0.4 mg Oral cp24 1 cap once jl7 daily [Active]; furosemide 40 mg Oral tab 1 tab once daily [Active]; amiodarone 100 mg Oral tab 1 tab 2 times per day [Active]; spironolactone 25 mg Oral tab 0.5 tab 2 times per day [Active]; cephalexin 500 mg Oral tab 1 tab daily [Active]; glimepiride 4 mg Oral tab 1 tab [Active]; Entresto 49-51 mg Oral tab 1 tab 2 times per day [Active]; omeprazole 20 mg Oral cpDR 1 cap once daily [Active]; carvedilol 12.5 mg Oral tab 1 tab 2 times per day [Active]; Vitamin B-12 Oral [Active]; Trulicity 1.5 mg/ 0.5mL inject 1 pen weekly [Active]; melatonin 5 mg Oral tab [Active]; Vitamin D Oral [Active]; buspirone 5 mg Oral tab 1 tab 2 times per day [Active]; metformin 500 mg Oral tab 1 tab three times a day [Active]; Xarelto 15 mg Oral tab daily [Active]; atorvastatin 40 mg Oral tab 1 tab once daily [Active]; montelukast 10 mg Oral tab 1 tab once daily [Active]; Januvia 50 mg Oral tab 1 tabs once daily [Active]; trelegy Ellipta 100-62.5-25 mcg inahle 1 puff DAILY [Active]; ProAir HFA 108 mcg INH inhale 2 puffs Q4h PRN [Active]; albuterol sulfate 2.5 mg /3 mL (0.083 %) Inhl nebu 3 mL twice a day [Active]; - PMHx: 10:16 CHF; COPD; High Cholesterol; jl7 15:46 Pacemaker; Diabetes - IDDM; jl7 - PSHx: 15:46 cardiac stents; jl7 - Immunization history:: Adult Immunizations unknown. - Family history:: not pertinent. - Social history:: Smoking status: Patient/guardian denies using tobacco. - Ebola Screening: : No symptoms or risks identified at this time. ROS: 10:26 Constitutional: Negative for fever, chills, and weight loss, Eyes: Negative for injury, nabil pain, redness, and discharge, ENT: Negative for injury, pain, and discharge, Neck: Negative for injury, pain, and swelling, Cardiovascular: Negative for chest pain, palpitations, and edema, Abdomen/GI: Negative for abdominal pain, nausea, vomiting, diarrhea, and constipation, Back: Negative for injury and pain, : Negative for injury, bleeding, discharge, and swelling, MS/Extremity: Negative for injury and deformity, Skin: Negative for injury, rash, and discoloration, Neuro: Negative for headache, weakness, numbness, tingling, and seizure, Psych: Negative for depression, anxiety, suicide ideation, homicidal ideation, and hallucinations, Allergy/Immunology: Negative for hives, rash, and allergies, Endocrine: Negative for neck swelling, polydipsia, polyuria, polyphagia, and marked weight changes, Hematologic/Lymphatic: Negative for swollen nodes, abnormal bleeding, and unusual bruising. 10:26 Respiratory: Positive for cough, wheezing, expiratory. Exam: 10:26 Constitutional: This is a well developed, well nourished patient who is awake, alert, nabil and in no acute distress. Head/Face: Normocephalic, atraumatic. Eyes: Pupils equal round and reactive to light, extra-ocular motions intact. Lids and lashes normal. Conjunctiva and sclera are non-icteric and not injected. Cornea within normal limits. Periorbital areas with no swelling, redness, or edema. ENT: Nares patent. No nasal discharge, no septal abnormalities noted. Tympanic membranes are normal and external auditory canals are clear. Oropharynx with no redness, swelling, or masses, exudates, or evidence of obstruction, uvula midline. Mucous membranes moist. Neck: Trachea midline, no thyromegaly or masses palpated, and no cervical lymphadenopathy. Supple, full range of motion without nuchal rigidity, or vertebral point tenderness. No Meningismus. Chest/axilla: Normal chest wall appearance and motion. Nontender with no deformity. No lesions are appreciated. Cardiovascular: Regular rate and rhythm with a normal S1 and S2. No gallops, murmurs, or rubs. Normal PMI, no JVD. No pulse deficits. Abdomen/GI: Soft, non-tender, with normal bowel sounds. No distension or tympany. No guarding or rebound. No evidence of tenderness throughout. Back: No spinal tenderness. No costovertebral tenderness. Full range of motion. Male : Normal genitalia with no discharge or lesions. Skin: Warm, dry with normal turgor. Normal color with no rashes, no lesions, and no evidence of cellulitis. MS/ Extremity: Pulses equal, no cyanosis. Neurovascular intact. Full, normal range of motion. Neuro: Awake and alert, GCS 15, oriented to person, place, time, and situation. Cranial nerves II-XII grossly intact. Motor strength 5/5 in all extremities. Sensory grossly intact. Cerebellar exam normal. Normal gait. Psych: Awake, alert, with orientation to person, place and time. Behavior, mood, and affect are within normal limits. 10:26 Respiratory: mild respiratory distress is noted, Respirations: normal, no acute changes, Breath sounds: rhonchi, wheezing: inspiratory expiratory 10:28 Musculoskeletal/extremity: DVT Exam: no pain, no tenderness, negative Homans' sign nabil noted on exam, no appreciated bluish discoloration, no erythema, no increased warmth, swelling. Vital Signs: 10:16 Pulse 84; Resp 26; Pulse Ox 86% on R/A; jl7 10:17 BP 111 / 65; Pulse 80; Resp 25; Pulse Ox 98% on 3 lpm NC; jl7 10:21 Temp 98.3(O); em1 10:30 BP 104 / 53; Pulse 61; Resp 28 S; Pulse Ox 97% on 3 lpm NC; jl7 11:00 BP 105 / 49; Pulse 62; Resp 25 S; Pulse Ox 99% on 3 lpm NC; Pain 0/10; jl7 11:15 BP 103 / 57; Pulse 79; Resp 29 S; Temp 99.1(O); Pulse Ox 97% on 3 lpm NC; jl7 11:39 BP 87 / 45; Pulse 77; Resp 24 S; Pulse Ox 94% on 3 lpm NC; aa5 12:00 BP 76 / 53; Pulse 81; Resp 24 S; Pulse Ox 96% on 3 lpm NC; jl7 12:15 BP 90 / 55; Pulse 62; Resp 22 S; Pulse Ox 96% on 3 lpm NC; jl7 12:30 BP 96 / 52; Pulse 61; Resp 23 S; Pulse Ox 95% on 3 lpm NC; jl7 12:45 BP 88 / 71; Pulse 61; Resp 21; Pulse Ox 95% on 35% BiPAP; jl7 13:00 BP 94 / 49; Pulse 60; Resp 22; Pulse Ox 98% on 35% BiPAP; jl7 13:30 BP 106 / 58; Pulse 63; Resp 27 S; Pulse Ox 97% on 35% BiPAP; jl7 14:00 BP 99 / 64; Pulse 62; Resp 19 S; Pulse Ox 97% on 35% BiPAP; jl7 14:30 BP 102 / 46; Pulse 78; Resp 19 S; Pulse Ox 98% on 35% BiPAP; jl7 15:00 BP 105 / 44; Pulse 62; Resp 23 S; Pulse Ox 96% on 35% BiPAP; jl7 15:30 BP 107 / 49; Pulse 61; Resp 22 S; Pulse Ox 97% on 35% BiPAP; jl7 16:00 BP 117 / 53; Pulse 74; Resp 24 S; Pulse Ox 96% on 35% BiPAP; jl7 17:00 BP 106 / 54; Pulse 65; Resp 18 S; Pulse Ox 95% on 35% BiPAP; Pain 0/10; jl7 11:39 Dr. Nye notified of decreased BP aa5 MDM: 10:18 Patient medically screened. [facility] 10:28 Data reviewed: vital signs, nurses notes, lab test result(s), EKG, radiologic studies, nabil plain films. 10/30 10:18 Order name: Basic Metabolic Panel; Complete Time: 12:06 [facility] 10/30 10:18 Order name: CBC with Diff; Complete Time: 12:06 [facility] 10/30 10:18 Order name: LFT's; Complete Time: 12:06 [facility] 10/30 10:18 Order name: Magnesium; Complete Time: 12:06 [facility] 10/30 10:18 Order name: NT PRO-BNP; Complete Time: 12:06 [facility] 10/30 10:18 Order name: PT-INR; Complete Time: 12:06 [facility] 10/30 10:18 Order name: Troponin (emerg Dept Use Only); Complete Time: 12:06 [facility] 10/30 10:18 Order name: XRAY Chest (1 view); Complete Time: 12:06 [facility] 10/30 10:18 Order name: Urine Culture [facility] 10/30 10:18 Order name: Blood Culture Adult (2) [facility] 10/30 11:51 Order name: Urine Dipstick--Ancillary (enter results); Complete Time: 12:16 10/30 12:07 Order name: BIPAP [facility] 10/30 12:16 Order name: Lactate [facility] 10/30 15:10 Order name: Thyroid Stimulating Hormone [facility]SC 10/30 10:18 Order name: EKG; Complete Time: 10:19 [facility] 10/30 10:18 Order name: Cardiac monitoring; Complete Time: 11:10 [facility] 10/30 10:18 Order name: EKG - Nurse/Tech; Complete Time: 11:10 [facility] 10/30 10:18 Order name: IV Saline Lock; Complete Time: 11:10 [facility] 10/30 10:18 Order name: Labs collected and sent; Complete Time: 11:10 [facility] 10/30 12:20 Order name: Echo w/ Doppler [facility] 10/30 10:18 Order name: O2 Per Protocol; Complete Time: 11:10 [facility] 10/30 10:18 Order name: O2 Sat Monitoring; Complete Time: 11:10 [facility] 10/30 10:18 Order name: Urine Dipstick-Ancillary (obtain specimen); Complete Time: 12:08 [facility] 10/30 12:07 Order name: Acosta; Complete Time: 13:43 [facility] Administered Medications: 10:30 Drug: Xopenex 3.75 mg Route: Inhalation; jl7 11:45 Follow up: Response: No adverse reaction jl7 10:30 Drug: AtroVENT Aerosol 0.5 mg Route: Inhalation; jl7 11:45 Follow up: Response: No adverse reaction jl7 11:05 Drug: Lasix 20 mg Route: IVP; Site: right hand; jl7 11:20 Follow up: Response: No adverse reaction jl7 11:35 Drug: Rocephin 1 grams Route: IV; Rate: per protocol; Site: right hand; jl7 11:38 Follow up: Response: No adverse reaction; IV Status: Completed infusion jl7 11:39 Drug: Pepcid 20 mg Route: IVP; Site: right hand; jl7 15:31 Follow up: Response: No adverse reaction jl7 11:40 Drug: NS 0.9% 250 ml Route: IV; Rate: bolus; Site: right hand; aa5 11:55 Follow up: Response: No adverse reaction; IV Status: Completed infusion; IV Intake: jl7 250ml 11:50 Drug: SOLU-Medrol 125 mg Route: IVP; Site: right hand; jl7 13:15 Follow up: Response: No adverse reaction jl7 12:05 Drug: NS 0.9% 250 ml Route: IV; Rate: bolus; Site: right hand; jl7 12:20 Follow up: Response: No adverse reaction; IV Status: Completed infusion; IV Intake: jl7 250ml 13:43 Drug: Rocephin 1 grams Route: IV; Rate: per protocol; Site: right hand; jl7 13:46 Follow up: Response: No adverse reaction; IV Status: Completed infusion jl7 17:41 Not Given (Physician Discretion): NS 0.9% 500 ml IV at bolus once jl7 Disposition: 10/30/19 12:19 Hospitalization ordered by Steffany Rae for Inpatient Admission. Preliminary diagnosis are Dyspnea, Unspecified combined systolic (congestive) and diastolic (congestive) heart failure, Chronic obstructive pulmonary disease with (acute) exacerbation, Obesity, unspecified, Unspecified kidney failure, Anemia, unspecified. - Bed requested for Intensive Care Unit. - Status is Inpatient Admission. jl7 - Condition is Fair. - Problem is new. - Symptoms have improved. UTI on Admission? No Signatures: Dispatcher [employer] EDMS DirBarbara burtno Corey, MD MD cha Calderon, Audri, RN RN aa5 Madalyn Joseph RN RN jl7 Corrections: (The following items were deleted from the chart) 15:49 12:19 Hospitalization Ordered by Steffany Rae MD for Inpatient Admission. Preliminary bd diagnosis is Dyspnea; Unspecified combined systolic (congestive) and diastolic (congestive) heart failure; Chronic obstructive pulmonary disease with (acute) exacerbation; Obesity, unspecified; Unspecified kidney failure; Anemia, unspecified. Bed requested for Intensive Care Unit. Status is Inpatient Admission. Condition is Fair. Problem is new. Symptoms have improved. UTI on Admission? No. nabil 17:46 15:49 10/30/2019 12:19 Hospitalization Ordered by Steffany Rae MD for Inpatient Admission. jl7 Preliminary diagnosis is Dyspnea; Unspecified combined systolic (congestive) and diastolic (congestive) heart failure; Chronic obstructive pulmonary disease with (acute) exacerbation; Obesity, unspecified; Unspecified kidney failure; Anemia, unspecified. Bed requested for Intensive Care Unit. Status is Inpatient Admission. Condition is Fair. Problem is new. Symptoms have improved. UTI on Admission? No. bd
[2019-10-30] MEDS ORDERED: LIDOCAINE VISCOUS 2% SOLN 15 ML UDC ONE (13:25)
[2019-10-30] MEDS ORDERED: ACETAMINOPHEN 500 MG TAB PO PRN (14:03)
[2019-10-30] MEDS ORDERED: ONDANSETRON 4 MG/2 ML VIAL IV PRN (14:03)
[2019-10-30] MEDS ORDERED: Levofloxacin500mg IV 500 MG/100 ML BAG IV SCH (15:00)
[2019-10-30] MEDS: INSULIN -REGULAR HUMAN 50 UNIT/0.5 ML ML SQ SCH ×2 (18:45→21:25)
[2019-10-30] MEDS: FUROSEMIDE 40 MG/4 ML VIAL IV SCH (18:45)
[2019-10-30] MEDS: ENOXAPARIN 40 MG/0.4 ML SQ SCH (18:46)
[2019-10-30] MEDS: IPRATROPIUM BROM 0.5MG/2.5ML NEB SCH (19:58)
[2019-10-30] MEDS: ALBUTEROL 2.5 MG/3 ML NEB SOL NEB SCH (19:58)
--- NOTE | 2019-10-30 20:55 | EKG ---
Test Date: 2019-10-30 Test Time: 10:26:10 Correctional Corporal: FRANCISCO JAVIER MEASUREMENT RESULTS: Intervals: Rate: 70 FL: 148 QRSD: 44 QT: 344 QTc: 371 [place]: P: FL: 148 QRS: -60 T: 203 INTERPRETIVE STATEMENTS: Sinus rhythm with fusion complexes Left axis deviation Low voltage QRS Anterior infarct, possibly acute T wave abnormality, consider inferolateral ischemia Abnormal ECG Electronically Signed On 10-30-19 20:54:49 GRANTS ASSISTANT by Chavez Jesus
--- NOTE | 2019-10-30 20:55 | EKG ---
Test Date: 2019-10-30 Test Time: 10:26:50 Miller First: FRANCISCO JAVIER MEASUREMENT RESULTS: Intervals: Rate: 68 MD: 144 QRSD: 42 QT: 360 QTc: 382 [place]: P: MD: 144 QRS: -60 T: 200 INTERPRETIVE STATEMENTS: Normal sinus rhythm Indeterminate axis Low voltage QRS Possible Lateral infarct, age undetermined Abnormal ECG Electronically Signed On 10-30-19 20:54:20 FINANCIAL PLANNING ADVISOR by Chavez Jesus
[2019-10-30 21:52] LABS: Arterial Blood Carboxyhemoglob 1.8 % (0-1.5); Blood Gas Oxyhemoglobin 90.5 % (94-97); Blood O2 Saturation 92.8 % (92-98.5)
--- NOTE | 2019-10-31 01:39 | HP ---
Date of Admission: 10/30/2019 Chief Complaint: Short of breath. History Of Present Illness: This patient is an 84-year-old gentleman, who presents for cough and shortness of breath. He has a history of hypertension, CHF, type 2 diabetes, COPD, and CVA. This patient has been coughing for the last 5 days. This is associated with minimal greenish sputum. He also experienced short of breath on exertion. He has been using home nebulizer. He is home oxygen dependent. This patient has been suffering from chronic lower extremity edema. Now the patient is suffering from SOB even at resting. The dyspnea gets worse at light activity and talking. No fever or chills. He said the sputum is minimal. No chest pain. No nasal congestion or sore throat. No dizziness or syncope. He presented to the emergency room for shortness of breath. In the ED , his blood pressure was soft, which is 80s to 90s. He is awake, alert, and oriented x3. WBC 9.5 and hemoglobin 9.2. Platelets are 288. INR 2. Sodium 142, potassium 4.3, creatinine 1.5. Liver enzymes within normal range. Chest x -ray suggest mild CHF versus volume overloaded. He was put on the BiPAP in the ED. The patient will be admitted to the ICU for further management. Past Medical History: 1. CHF. 2. Hypertension. 3. Type 2 diabetes. 4. COPD. 5. History of CVA. Surgical History: Unremarkable. Home Medication: Reviewed. Please see medication list. Review of Systems: Ten point system was reviewed, which is unremarkable except as mentioned in HPI. Family History: Noncontributory. Social History: Patient is an recruiting assistant living resident. Not current smoking or alcohol abuse. Physical Examination: General: Patient awake, alert, and oriented x3, in mild distress due to shortness of breath. HEENT: Atraumatic, normocephalic. PERRLA, EOM. Neck: Supple. Mild JVD. Chest: Decreased breath sounds. No labored breathing. No rales or rhonchi. Heart: Normal S1, S2. Regular rhythm. No murmur. Abdomen: Soft, obese. Breath sound is hypoactive. Extremities: Bilateral 2+ edema. No redness. Neuro: Patient awake, alert, oriented x3 nonfocal. Psych: No agitation or anxiety. Skin: No rashes or lesion. Laboratory Data: WBC 9.5, hemoglobin 9.2, and platelet 288. INR 2. Sodium 142 , potassium 4.3, BUN 26, creatinine 1.5. Assessment And Plan: 1. Acute respiratory failure. This is likely due to congestive heart failure exacerbation versus chronic obstructive pulmonary disease exacerbation. Chest x -ray demonstrated mild congestion. We started IV Lasix. We gave DuoNeb nebulization. Patient having some cough, with minimal greenish sputum. I will give IV Levaquin empirically and will consult automatic hemmer. 2. Congestive heart failure exacerbation. The patient have bilateral lower extremity edema and pulmonary congestion, has started IV Lasix 40 mg b.i.d. Will resume home CV medications. 3. Chronic obstructive pulmonary disease exacerbation. Currently, the patient on the BiPAP. We started DuoNeb nebulization. No steroids as he did not have much wheezing at this moment. I will give IV Levaquin as he some sputum. 4. Renal failure, creatinine at 1.5. There are probably chronic components as his creatinine was 1.6 on October 27. We will closely monitor renal function in the setting of diuresis. 5. Diabetes with positive sliding scale. We will resume home diabetic medications. We will check A1c in the morning. 6. Hypertension. Current blood pressure is soft. Hold the home blood pressure medication. 7. Generalized weakness. PT was ordered. This patient needs SNF versus rehab placement. We will consult case finishing machine adjuster. ELEANOR/ELY Voice ID: [id number] MTDD
[2019-10-31] MEDS: ALBUTEROL 2.5 MG/3 ML NEB SOL NEB SCH ×4 (01:45→19:55)
[2019-10-31] MEDS: IPRATROPIUM BROM 0.5MG/2.5ML NEB SCH ×4 (01:45→19:55)
[2019-10-31 05:20] LABS: Absolute Lymphocytes (CBC) 0.8 K/uL (0.7-4.9); Basophils % 0.1 % (0-1.3); Hematocrit 29.4 % (39.6-49.0); MPV 8.3 fL (7.6-11.3); RBC Red Blood Cell Count 3.87 M/uL (4.33-5.43)
[2019-10-31 05:37] LABS: Albumin 2.7 g/dL (3.4-5.0); Bilirubin Total 0.3 mg/dL (0.2-1.0); Phosphorus 2.2 mg/dL (2.5-4.9); Potassium 4.6 mmol/L (3.5-5.1); Protein, Total 6.1 g/dL (6.4-8.2)
--- NOTE | 2019-10-31 08:14 | ECHO ---
HEIGHT: 5 ft 11 in WEIGHT: 291 lb 1 oz DATE OF STUDY: 10/30/[address]: Dhaval Nye MD 2-DIMENSIONAL: YES M.MODE: YES DOPPLER: YES COLOR FLOW: YES TDS: YES PORTABLE: YES DEFINITY: NO BUBBLE STUDY: NO DIAGNOSIS: CONGESTIVE HEART FAILURE CARDIAC HISTORY: CATHERIZATION: YES SURGERY: NO PROSTHETIC VALVE: NO PACEMAKER: YES MEASUREMENTS (cm) DIASTOLIC (NORMALS) SYSTOLIC (NORMALS) IVSd 1.1 (0.6-1.2) LA Diam 4.1 (1.9-4.0) LVEF 75% LVIDd 5.3 (3.5-5.7) LVIDs 2.9 (2.0-3.5) %FS 44% LVPWd 1.3 (0.6-1.2) Ao Diam 3.3 (2.0-3.7) 2 DIMENSIONAL ASSESSMENT: RIGHT ATRIUM: NORMAL LEFT ATRIUM: DILATED RIGHT VENTRICLE: NORMAL LEFT VENTRICLE: LEFT VENTRICULAR HYPERTROPHY TRICUSPID VALVE: NORMAL MITRAL VALVE: NORMAL PULMONIC VALVE: NORMAL AORTIC VALVE: NORMAL PERICARDIAL EFFUSION: NONE AORTIC ROOT: NORMAL LEFT VENTRICULAR WALL MOTION: NORMAL DOPPLER/COLOR FLOW: NORMAL COMMENTS: LEFT ATRIAL ENLARGEMENT. LEFT VENTRICULAR HYPERTROPHY. LOWER LEFT VENTRICULAR COMPLIANCE. NORMAL LEFT VENTRICULAR EJECTION FRACTION. TECHNOLOGIST: Clifton BERUMEN
[2019-10-31] MEDS: INSULIN -REGULAR HUMAN 50 UNIT/0.5 ML ML SQ SCH ×4 (08:42→20:47)
[2019-10-31] MEDS: ENOXAPARIN 40 MG/0.4 ML SQ SCH (08:42)
[2019-10-31] MEDS: FUROSEMIDE 40 MG/4 ML VIAL IV SCH ×2 (08:43→17:33)
[2019-10-31] MEDS: SPIRONOLACTONE 25 MG TABLET PO SCH (09:35)
--- NOTE | 2019-10-31 14:11 | P.PN ---
Subjective Date of Service: 10/31/19 Primary Care Provider: Unknown Chief Complaint: Shortness of breath Subjective: Improving Physical Examination - Vital Signs Temperature: 97.6 F Blood Pressure: 107/55 Pulse: 62 Respirations: 19 Pulse Ox (%): 98 - Physical Exam General: Alert, Other (Patient was on BiPAP this morning. Patient uses CPAP at night.) Neck: Supple Respiratory: Crackles/rales Cardiovascular: Normal pulses, Regular rate/rhythm Gastrointestinal: No ascites Musculoskeletal: No tenderness, No warmth Integumentary: Tenderness/swelling (Some pedal edema noted) Neurological: Normal speech, Normal strength at 5/5 x4 extr, Normal tone - Studies Microbiology Data (last 24 hrs): 10/30/19 10:18 Blood - Blood Anaerobic Blood Culture - Final Medications List Reviewed: Yes Assessment & Plan Discharge Plan: Home Plan to discharge in: 72 Hours Physician Review Additional Text: Impression: Acute respiratory failure likely related to acute on chronic systolic CHF versus COPD exacerbation Acute on chronic renal failure stage III Diabetes mellitus type 2 insulin dependent Hypertension Obstructive sleep apnea on CPAP Anemia of chronic disease Suspect History of A Fib on chronic anticoagulation Plan: Acute respiratory failure likely related to acute on chronic systolic CHF versus COPD exacerbation: Continue 1500 cc per day fluid restriction and low- salt diet. Continue COPD medication. Will consult pulmonology for further recommendation. Echocardiogram shows EF of 75%. Will wean off oxygen. Patient previously on Xarelto, Entresto, Amiodarone. Will restarted. Will consult Cardiology for recommendations. Will transition patient to the floor if improved. Anticipate discharge in the next 1-3 days pending clinical improvement. Patient may require home oxygen at discharge Acute on chronic renal failure stage III: Will monitor closely. Continue with fluid restriction. Diabetes mellitus type 2 insulin dependent: Accu-Cheks in place. Will monitor closely. Insulin sliding scale to be continued. Will check A1c. Hypertension: Will provide medication Obstructive sleep apnea on CPAP: Will provide CPAP at night. Anemia of chronic disease: Will monitor. Will check iron and B12. Suspect History of A fib on chronic anticaogulation: Restart meds. Consult Cardiology. Time Spent Managing Pts Care (In Minutes): 55
[2019-10-31 16:14] LABS: Ferritin 11.3 ng/mL (26-388)
[2019-10-31 16:17] LABS: Arterial Blood Carboxyhemoglob 0.4 % (0-1.5); Blood O2 Saturation 89.7 % (92-98.5)
--- NOTE | 2019-10-31 16:45 | RAD REPORT ---
EXAM DESCRIPTION: CT - Head Brain Wo Cont - 10/31/2019 4:32 pm CLINICAL HISTORY: Alteration of awareness/confusion COMPARISON: None TECHNIQUE: Computed axial tomography of the head was obtained. IV contrast was not requested. All CT scans are performed using dose optimization technique as appropriate and may include automated exposure control or mA/KV adjustment according to patient size. FINDINGS: An intracranial bleed is not seen . The ventricles are normal in caliber. No extra-axial fluid collection is noted. 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 . The maxillary sinuses are completely opacified consistent sinusitis IMPRESSION: No acute intracranial abnormality is seen. If patient's symptoms persist MRI of the bra in would be recommended.
[2019-10-31] MEDS: RIVAROXABAN 15 MG TABLET PO SCH (17:34)
--- NOTE | 2019-10-31 19:35 | CON ---
Identification: 84-year-old man. Reason For Consult: Congestive heart failure, history of AFib. History Of Present Illness: Mr. Noriega has been getting progressively more short of breath. When he c itzel to the hospital, he was found to be in mild pulmonary edema. Since then, he has had diuresis and feels better. The patient has a history of congestive heart failure. He has depressed ejection fra ction. In the past, he has a defibrillator. His echocardiogram since he was here shows a normal eje ction fraction. There is left ventricular hypertrophy and poor left ventricular compliance. He has underlying obesity, hypertension, congestive heart failure, diabetes, prostate trouble. Outpatient Medications: Proscar, tamsulosin, Trelegy Ellipta, sitagliptin, niacin, Xarelto 15 mg, Si ngulair, metformin, atorvastatin, buspirone, Trulicity, Prilosec, Coreg, Entresto 49/51, glimepiride, cephalexin, spironolactone, furosemide, amiodarone, albuterol, acetaminophen, and Bactroban cream. Physical Examination: General: He is alert, oriented, pleasant. He is not in distress. 5 feet 11 inches, 291 pounds. Lungs: Do not reveal crackles right now. Heart: Tones are very distant. I do not appreciate a murmur or gallop. Impression: The patient is being treated for heart failure. His underlying condition is stable. Mi ld volume overloaded, mild exacerbation of a chronic condition. Diuresis seems to be what is helping him. Perhaps when he goes home, he could follow a lower sodium diet. I think he is close to being ready to be discharged tomorrow. We will do a defibrillator check using a [employer] hardware and see if there is anything to be concerned about. I do not think the patient has had any recent at ria fibrillation. SH/MODL Voice ID: [id number] Report ID: [id number]
[2019-10-31] MEDS: SACUBITRIL/VALSARTAN 49/51 MG TAB PO SCH (20:50)
[2019-10-31] MEDS: MELATONIN 5 MG TABLET PO SCH (20:50)
[2019-10-31] MEDS: BUSPIRONE HCL 5 MG TABLET PO SCH (20:50)
[2019-10-31] MEDS: AMIODARONE HCL 200 MG TAB PO SCH (20:50)
[2019-10-31] MEDS: ATORVASTATIN 40 MG TAB PO SCH (20:50)
[2019-10-31] MEDS ORDERED: HOME MED 1 EA UNK (Amiodarone Hcl [Amiodarone Hcl] 100 MG) PO SCH (21:00)
[2019-11-01] MEDS: ALBUTEROL 2.5 MG/3 ML NEB SOL NEB SCH ×4 (02:00→20:45)
[2019-11-01] MEDS: IPRATROPIUM BROM 0.5MG/2.5ML NEB SCH ×4 (02:00→20:45)
[2019-11-01 05:07] LABS: Absolute Lymphocytes (CBC) 2.2 K/uL (0.7-4.9); Basophils % 0.4 % (0-1.3); Hematocrit 30.5 % (39.6-49.0); Lymphocytes % 16.4 % (15.3-44.8); MPV 8.1 fL (7.6-11.3); RBC Red Blood Cell Count 4.01 M/uL (4.33-5.43)
[2019-11-01 05:24] LABS: Magnesium 2.2 mg/dL (1.8-2.4); Potassium 4.4 mmol/L (3.5-5.1)
[2019-11-01 06:32] VITALS: BMI 39.9
[2019-11-01] MEDS: INSULIN -REGULAR HUMAN 50 UNIT/0.5 ML ML SQ SCH ×4 (07:30→20:39)
--- NOTE | 2019-11-01 08:21 | RAD REPORT ---
EXAM DESCRIPTION: RAD - Chest Single View - 11/01/2019 5:56 am CLINICAL HISTORY: copd Chest pain. COMPARISON: Chest Single View dated 10/30/2019; Chest Single View dated 10/27/2019 FINDINGS: Portable technique limits examination quality. Mild interstitial pulmonary edema is seen. The heart is moderately enlarged with a multilead pacer/de fibrillator device. No displaced fractures. IMPRESSION: Mild CHF.
[2019-11-01] MEDS: SPIRONOLACTONE 25 MG TABLET PO SCH (08:33)
[2019-11-01] MEDS: MONTELUKAST 10 MG TAB PO SCH (08:33)
[2019-11-01] MEDS: FINASTERIDE 5 MG TAB PO SCH (08:33)
[2019-11-01] MEDS: ASCORBIC ACID 500 MG TABLET PO SCH (08:33)
[2019-11-01] MEDS: TAMSULOSIN 0.4 MG SR CAP PO SCH (08:33)
[2019-11-01] MEDS: AMIODARONE HCL 200 MG TAB PO SCH ×2 (08:33→20:38)
[2019-11-01] MEDS: PANTOPRAZOLE 40MG TABLET PO SCH (08:34)
[2019-11-01] MEDS: FUROSEMIDE 40 MG/4 ML VIAL IV SCH (08:35)
[2019-11-01] MEDS: HOME MED 1 EA UNK (Fluticasone/Umeclidin/Vilanter [Trelegy Ellipta 100-62.5-25] 1 EACH) IH SCH (08:35)
[2019-11-01] MEDS: SACUBITRIL/VALSARTAN 49/51 MG TAB PO SCH ×2 (08:43→20:37)
[2019-11-01] MEDS: VITAMIN B COMPLEX 1 CAP PO SCH (08:43)
[2019-11-01] MEDS: BUSPIRONE HCL 5 MG TABLET PO SCH ×2 (08:43→20:37)
--- NOTE | 2019-11-01 08:56 | P.CNS ---
Date of Consult: 10/31/19 Primary Care Provider: Unknown Chief Complaint: Respiratory failure History of Present Illness: Patient is 84 years of age admitted with cough and shortness of breath multiple medical problems productive cough worsening shortness of breath he is on oxygen and nebulizers no apparent discomfort/admitted with worsening lower extremity edema for 2 weeks he has never smoked compliant with his CPAP history of sleep apnea Hi Allergies No Known Allergies Allergy (Unverified 10/30/19 18:18) Home Medications: Acetaminophen [Tylenol Extra Strength] 500 mg PO Q6HP PRN 10/30/19 Albuterol Sulfate [Proair Hfa] 8.5 gm IH Q4HP PRN 10/30/19 Amiodarone HCl 100 mg PO BID 10/30/19 Ascorbic Acid [Vitamin C with Shadia Hips] 500 mg PO DAILY 10/30/19 Atorvastatin Calcium [Lipitor] 40 mg PO BEDTIME 10/30/19 Buspirone HCl [Buspar] 5 mg PO BID 10/30/19 Carvedilol [Coreg] 12.5 mg PO BID 10/30/19 Cephalexin 500 mg PO DAILY 10/30/19 Dextromethorphan HBr [Tussin Cough] 10 ml PO Q4HP PRN 10/30/19 Dulaglutide [Trulicity] 1.5 mg SQ Q7D 10/30/19 Ergocalciferol (Vitamin D2) [Vitamin D 50,000 Unit Cap] 50,000 unit PO Q7D 10/30 Finasteride [Proscar] 5 mg PO DAILY 10/30/19 Fluticasone/Umeclidin/Vilanter [Trelegy Ellipta 100-62.5-25] 1 each IH DAILY Furosemide [Lasix] 40 mg PO DAILY 10/30/19 Glimepiride 4 mg PO BID 10/30/19 Melatonin 5 mg PO BEDTIME 10/30/19 Metformin HCl [Glucophage] 500 mg PO TID 10/30/19 Montelukast [Singulair] 10 mg PO DAILY 10/30/19 Mupirocin Cream [Bactroban 2% Cream*] 1 clark TOP BID 10/30/19 Niacin (Inositol Niacinate) [Niacin Flush Free 500 mg Cap] 2 cap PO DAILY Omeprazole 20 mg PO DAILY 10/30/19 Rivaroxaban [Xarelto] 15 mg PO DAILY 10/30/19 Sacubitril/Valsartan [Entresto 49 mg-51 mg Tablet] 1 tab PO BID 10/30/19 Sitagliptin Phosphate [Januvia] 50 mg PO DAILY 10/30/19 Spironolactone [Aldactone] 12.5 mg PO BID 10/30/19 Tamsulosin [Flomax] 0.4 mg PO DAILY 10/30/19 Vitamin B Complex [B-Complex Vitamin] 1 cap PO DAILY 10/30/19 - Past Medical/Surgical History Diabetic: Yes -: chf -: copd -: 02 prn nc 3L -: cpap night -: high cholesterol -: dm -: mi, cardiac stent -: htn -: afib -: pm/defibrillator -: cva -: bladder problems after cva, urgency/incontinence -: alireza - Social History Alcohol use: No CD- Drugs: No Caffeine use: Yes Review of Systems General: Weakness Respiratory: Cough, Shortness of Breath Cardiovascular: Orthopnea, Edema Physical Examination Temp Pulse Resp BP Pulse Ox 98 F 60 25 H 116/68 96 11/01/19 04:00 11/01/19 08:35 11/01/19 06:00 11/01/19 08:35 11/01/19 06:00 General: Alert, In no apparent distress, Oriented x3 HEENT: Atraumatic Neck: Supple Respiratory: Clear to auscultation bilaterally, Diminished Cardiovascular: Regular rate/rhythm, Normal S1 S2, Edema (3+ edema) - Problems (1) Respiratory failure Current Visit: Yes Status: Acute Plan: Patient admitted with worsening dyspnea lower extremity edema he has hypoxic hypercapnic presumed chronic his bicarbonate is elevated chronic renal insufficiency patient is anti coagulated mildly anemic AFib on Xarelto chest x- ray shows chronic interstitial change significant lower extremity edema echocardiogram shows left ventricular hypertrophy diastolic dysfunction patient is on bronchodilators never smoked in negative fluid balance vital signs in oxygenation satisfactory patient's BNP was normal Qualifiers: Chronicity: acute on chronic
[2019-11-01] MEDS ORDERED: [UNRECOGNIZED DRUG - REMARK] PO SCH (09:00)
[2019-11-01] MEDS ORDERED: HOME MED 1 EA UNK (Omeprazole [Omeprazole] 20 MG) PO SCH (09:00)
--- NOTE | 2019-11-01 14:45 | P.PN ---
Subjective Date of Service: 11/01/19 Primary Care Provider: Unknown Chief Complaint: Respiratory failure Subjective: Improving Physical Examination - Vital Signs Temperature: 96.3 F Blood Pressure: 115/58 Pulse: 81 Respirations: 20 Pulse Ox (%): 91 - Physical Exam General: Alert HEENT: Atraumatic Neck: Supple Respiratory: Clear to auscultation bilaterally Cardiovascular: Normal pulses, Regular rate/rhythm Gastrointestinal: Normal bowel sounds, Soft and benign, Non-distended Integumentary: No erythema, No warmth, No cyanosis - Studies Microbiology Data (last 24 hrs): 10/30/19 11:45 Clean Catch Urine [place] Count - Final 10/30/19 11:45 Clean Catch Urine - Final No growth. 10/30/19 10:18 Blood - Blood Anaerobic Blood Culture - Final Medications List Reviewed: Yes Assessment & Plan Discharge Plan: Other (Rehab facility) Plan to discharge in: 24 Hours Physician Review Additional Text: Impression: Acute respiratory failure likely related to acute on chronic systolic CHF versus COPD exacerbation Acute on chronic renal failure stage III Diabetes mellitus type 2 insulin dependent Hypertension Obstructive sleep apnea on CPAP Anemia of chronic disease Suspect History of A Fib on chronic anticoagulation Plan: Acute respiratory failure likely related to acute on chronic systolic CHF versus COPD exacerbation: Patient has done well. Patient will transfer to the floor. Chest x-ray shows improvement. CT head unremarkable yesterday. Patient back to normal mentation. Continue 1500 cc per day fluid restriction and low-salt diet. Continue COPD medication. Will discuss with pulmonology. Echocardiogram shows EF of 75%. Will wean off oxygen. Patient previously on Xarelto, Entresto, Amiodarone. Medication has been restarted. Will discuss with cardiology on continuation of medication. Anticipate discharge to rehab facility once approved. Acute on chronic renal failure stage III: Will monitor closely. Continue with fluid restriction. Diabetes mellitus type 2 insulin dependent: Accu-Cheks in place. Will monitor closely. Insulin sliding scale to be continued. Will check A1c. Hypertension: Will provide medication Obstructive sleep apnea on CPAP: Will provide CPAP at night. Anemia of chronic disease: Will monitor. Will check iron and B12. Suspect History of A fib on chronic anticaogulation: Restart meds. Will discuss with cardiology. Time Spent Managing Pts Care (In Minutes): 55
[2019-11-01] MEDS: FUROSEMIDE 40 MG TABLET PO SCH (17:22)
[2019-11-01] MEDS: RIVAROXABAN 15 MG TABLET PO SCH (17:22)
[2019-11-01] MEDS: MELATONIN 5 MG TABLET PO SCH (20:37)
[2019-11-01] MEDS: ATORVASTATIN 40 MG TAB PO SCH (20:37)
--- NOTE | 2019-11-01 20:49 | PN ---
Date of Progress Note: 11/01/2019 He had come in with congestive heart failure. He has diabetes. He has a defibrillator. AICD was ch ecked yesterday by the [employer] rep showing no abnormalities and no recent shocks. An echocardiogra m showed an ejection fraction of 75%. The patient is asymptomatic, has diuresed well. He can certai nly move to telemetry and be discharged tomorrow on his present regimen. We will see him in the offi ce in the next week or 2. HAIDER/SAHRAL Voice ID: [id number] Report ID: [id number]
[2019-11-02] MEDS: ALBUTEROL 2.5 MG/3 ML NEB SOL NEB SCH ×4 (01:50→20:15)
[2019-11-02] MEDS: IPRATROPIUM BROM 0.5MG/2.5ML NEB SCH ×4 (01:50→20:15)
[2019-11-02 04:27] LABS: Absolute Lymphocytes (CBC) 2.1 K/uL (0.7-4.9); Basophils % 0.4 % (0-1.3); Hematocrit 31.1 % (39.6-49.0); Lymphocytes % 19.5 % (15.3-44.8); MPV 8.1 fL (7.6-11.3); RBC Red Blood Cell Count 4.04 M/uL (4.33-5.43)
[2019-11-02 04:41] LABS: Magnesium 2.1 mg/dL (1.8-2.4); Potassium 4.5 mmol/L (3.5-5.1)
[2019-11-02] MEDS: INSULIN -REGULAR HUMAN 50 UNIT/0.5 ML ML SQ SCH ×4 (07:30→21:31)
[2019-11-02] MEDS: FUROSEMIDE 40 MG TABLET PO SCH ×2 (08:51→17:05)
[2019-11-02] MEDS: PANTOPRAZOLE 40MG TABLET PO SCH (08:51)
[2019-11-02] MEDS: ASCORBIC ACID 500 MG TABLET PO SCH (08:52)
[2019-11-02] MEDS: SPIRONOLACTONE 25 MG TABLET PO SCH (08:52)
[2019-11-02] MEDS: VITAMIN B COMPLEX 1 CAP PO SCH (08:52)
[2019-11-02] MEDS: BUSPIRONE HCL 5 MG TABLET PO SCH ×2 (08:53→21:32)
[2019-11-02] MEDS: MONTELUKAST 10 MG TAB PO SCH (08:53)
[2019-11-02] MEDS: FINASTERIDE 5 MG TAB PO SCH (08:53)
[2019-11-02] MEDS: SACUBITRIL/VALSARTAN 49/51 MG TAB PO SCH ×2 (08:54→21:32)
[2019-11-02] MEDS: AMIODARONE HCL 200 MG TAB PO SCH ×2 (08:54→21:32)
[2019-11-02] MEDS: HOME MED 1 EA UNK (Fluticasone/Umeclidin/Vilanter [Trelegy Ellipta 100-62.5-25] 1 EACH) IH SCH (08:55)
[2019-11-02] MEDS: TAMSULOSIN 0.4 MG SR CAP PO SCH (08:56)
--- NOTE | 2019-11-02 09:40 | P.PN ---
Subjective Date of Service: 11/02/19 Primary Care Provider: Unknown Chief Complaint: Respiratory failure Subjective: Improving, Doing well Physical Examination - Vital Signs Temperature: 96.7 F Blood Pressure: 121/58 Pulse: 66 Respirations: 18 Pulse Ox (%): 95 - Physical Exam General: Alert HEENT: Atraumatic Neck: Supple Respiratory: Clear to auscultation bilaterally, Normal air movement Cardiovascular: Normal pulses, Regular rate/rhythm Gastrointestinal: Normal bowel sounds, Soft and benign, Non-distended, No tenderness, No masses, No rebound, No guarding Musculoskeletal: No tenderness, No warmth Integumentary: No erythema, No warmth, No cyanosis, Tenderness/swelling ( Swelling to the lower extremities improved) Neurological: Normal speech, Normal strength at 5/5 x4 extr, Normal tone, Normal affect - Studies Microbiology Data (last 24 hrs): 10/30/19 11:45 Clean Catch Urine [place] Count - Final 10/30/19 11:45 Clean Catch Urine - Final No growth. Medications List Reviewed: Yes Assessment & Plan Discharge Plan: Other (Skilled/rehab facility) Plan to discharge in: 24 Hours Physician Review Additional Text: Impression: Acute respiratory failure likely related to acute on chronic systolic CHF exacerbation Acute on chronic renal failure stage III Diabetes mellitus type 2 insulin dependent Obstructive sleep apnea on CPAP Anemia of chronic disease History of A Fib on chronic anticoagulation BPH Hyperlipidemia Anxiety GERD COPD Plan: Acute respiratory failure likely related to acute on chronic systolic CHF exacerbation: Patient has done well. Chest x-ray showed improvement. CT head unremarkable yesterday. Patient doing well this time. Continue 1500 cc per day fluid restriction and low-salt diet. Lasix adjusted to oral medication. Continue COPD medication. Echocardiogram shows EF of 75%. Will continue to wean off oxygen. Continue with Entresto 1 pill twice daily, Aldactone 25 mg daily, Lasix 40 mg 1 pill twice daily. Anticipate discharge to rehab facility today if approved. Acute on chronic renal failure stage III: Will monitor closely. Continue with fluid restriction. Diabetes mellitus type 2 insulin dependent: Accu-Cheks in place. Will monitor closely. Insulin sliding scale to be continued. A1c 8.0 Obstructive sleep apnea on CPAP: Will need to continue with CPAP at night. Anemia of chronic disease: Will monitor. Will check iron and B12. History of A fib on chronic anticaogulation: Continue medication-amiodarone 100 mg twice daily and Xarelto 15 mg daily. Will discuss with cardiology. BPH: Continue with Flomax 0.4 mg daily Hyperlipidemia: Continue Lipitor 40 mg daily Anxiety: Continue Buspar 5 mg 1 pill twice daily GERD: Continue Protonix 20 mg daily COPD: Continue with current COPD medication Time Spent Managing Pts Care (In Minutes): 55
[2019-11-02] MEDS: RIVAROXABAN 15 MG TABLET PO SCH (17:05)
[2019-11-02] MEDS: MELATONIN 5 MG TABLET PO SCH (21:32)
[2019-11-02] MEDS: ATORVASTATIN 40 MG TAB PO SCH (21:32)
[2019-11-03] MEDS: IPRATROPIUM BROM 0.5MG/2.5ML NEB SCH ×4 (02:05→20:50)
[2019-11-03] MEDS: ALBUTEROL 2.5 MG/3 ML NEB SOL NEB SCH ×4 (02:05→20:50)
[2019-11-03 06:31] LABS: Absolute Lymphocytes (CBC) 1.8 K/uL (0.7-4.9); Basophils % 0.5 % (0-1.3); Lymphocytes % 18.7 % (15.3-44.8); MPV 8.4 fL (7.6-11.3); RBC Red Blood Cell Count 3.85 M/uL (4.33-5.43)
[2019-11-03 06:51] LABS: Magnesium 2.1 mg/dL (1.8-2.4); Potassium 3.6 mmol/L (3.5-5.1)
[2019-11-03] MEDS: INSULIN -REGULAR HUMAN 50 UNIT/0.5 ML ML SQ SCH ×4 (08:41→21:15)
[2019-11-03] MEDS: FINASTERIDE 5 MG TAB PO SCH (08:42)
[2019-11-03] MEDS: BUSPIRONE HCL 5 MG TABLET PO SCH ×2 (08:42→21:14)
[2019-11-03] MEDS: VITAMIN B COMPLEX 1 CAP PO SCH (08:42)
[2019-11-03] MEDS: ASCORBIC ACID 500 MG TABLET PO SCH (08:42)
[2019-11-03] MEDS: PANTOPRAZOLE 40MG TABLET PO SCH (08:42)
[2019-11-03] MEDS: SPIRONOLACTONE 25 MG TABLET PO SCH (08:43)
[2019-11-03] MEDS: MONTELUKAST 10 MG TAB PO SCH (08:43)
[2019-11-03] MEDS: SACUBITRIL/VALSARTAN 49/51 MG TAB PO SCH ×2 (08:43→21:14)
[2019-11-03] MEDS: TAMSULOSIN 0.4 MG SR CAP PO SCH (08:43)
[2019-11-03] MEDS: FUROSEMIDE 40 MG TABLET PO SCH ×2 (08:43→16:52)
[2019-11-03] MEDS: HOME MED 1 EA UNK (Fluticasone/Umeclidin/Vilanter [Trelegy Ellipta 100-62.5-25] 1 EACH) IH SCH (08:44)
[2019-11-03] MEDS: AMIODARONE HCL 200 MG TAB PO SCH ×2 (08:44→21:14)
--- NOTE | 2019-11-03 15:21 | PN ---
Subjective: Currently patient sitting in a chair. He is doing well. He has no chest pain. No abdo vernell pain. His shortness of breath improved significantly. He is eating. He can walk with a walke r and wants to go back to his assisted living, though he was not accepted last night. Objective: Vital Signs: Blood pressure 147/65, respiratory rate 19, pulse 60, temperature 97.8. General: Patient is alert and oriented x3. Does not look in any distress. HEENT: Atraumatic, normocephalic. PERRLA. Oral mucosa is moist. Neck: Supple. No JVD. No bruit. Chest: Clear to auscultation. Good air entry. Fine crackles in the bases. Heart: Regular rate and rhythm. S1, S2 normal. No gallop or murmur. Abdomen: Soft, nontender. No masses. No hepatosplenomegaly. Positive bowel sounds. Extremities: No clubbing or cyanosis, but there is +1 edema and stasis dermatitis. Neurologic: Grossly intact. Laboratory Data: Currently labs; CBC normal except for hemoglobin 8.9. Chemistry within normal exce pt for carbon dioxide 37, creatinine 1.44, BUN of 26, GFR 47, glucose ranged yesterday 142 to 230. Assessment And Plan: 1.Acute respiratory failure secondary to acute on chronic systolic congestive heart failure exacerba tion. Patient continues to improve. He is tolerating well. He continues to be on fluid restriction of 1500 mL. Appreciate Cardiology input. Continue patient on diuresis with Lasix 40 mg twice a day and Aldactone 25 mg daily. Chest x-ray on the 16 was fine. Repeat chest x-ray in the morning of 19. 2.Acute on chronic renal insufficiency. Creatinine 1.44 due to diuresis. Continue to observe. Con tinue fluid restriction. 3.Diabetes mellitus type 2. Continue insulin sliding scale. Hemoglobin A1c was 8. I will place zurdo crespo on 5 units of Lantus daily while inpatient for better control of his diabetes. 4.Hypertension, well controlled on valsartan, Flomax. 5.BPH, on Flomax. 6.Anemia of chronic disease secondary to renal insufficiency and multifocal disease. 7.Obstructive sleep apnea. Continue on CPAP. 8.History of atrial fibrillation, rate controlled. Continue on Xarelto as well as amiodarone 100 mg twice a day. 9.Hyperlipidemia. Continue Lipitor. 10.Anxiety, on BuSpar 5 mg twice a day. 11.Acid-reflux prophylaxis, on Protonix. 12.Discharge planning will begin on acceptance at assisting living facility. Apparently, according to the chart note, patient need to go to rehab before accepted at the assisted living facility, so zurdo crespo will not be discharged until at least Tuesday. ZULAY/ELY Voice ID: [id number] Report ID: [id number]
[2019-11-03] MEDS: RIVAROXABAN 15 MG TABLET PO SCH (16:53)
[2019-11-03] MEDS: MELATONIN 5 MG TABLET PO SCH (21:14)
[2019-11-03] MEDS: ATORVASTATIN 40 MG TAB PO SCH (21:14)
[2019-11-04] MEDS: IPRATROPIUM BROM 0.5MG/2.5ML NEB SCH ×4 (01:40→20:10)
[2019-11-04] MEDS: ALBUTEROL 2.5 MG/3 ML NEB SOL NEB SCH ×4 (01:40→20:10)
[2019-11-04 07:19] LABS: Phosphorus 3.1 mg/dL (2.5-4.9); Potassium 3.7 mmol/L (3.5-5.1)
[2019-11-04] MEDS: MONTELUKAST 10 MG TAB PO SCH (09:00)
[2019-11-04] MEDS: HOME MED 1 EA UNK (Fluticasone/Umeclidin/Vilanter [Trelegy Ellipta 100-62.5-25] 1 EACH) IH SCH (09:00)
[2019-11-04] MEDS: FUROSEMIDE 40 MG TABLET PO SCH ×2 (09:40→17:46)
[2019-11-04] MEDS: FINASTERIDE 5 MG TAB PO SCH (09:40)
[2019-11-04] MEDS: BUSPIRONE HCL 5 MG TABLET PO SCH ×2 (09:40→21:20)
[2019-11-04] MEDS: SACUBITRIL/VALSARTAN 49/51 MG TAB PO SCH ×2 (09:40→21:17)
[2019-11-04] MEDS: TAMSULOSIN 0.4 MG SR CAP PO SCH (09:40)
[2019-11-04] MEDS: AMIODARONE HCL 200 MG TAB PO SCH ×2 (09:40→21:16)
[2019-11-04] MEDS: ASCORBIC ACID 500 MG TABLET PO SCH (09:41)
[2019-11-04] MEDS: INSULIN -REGULAR HUMAN 50 UNIT/0.5 ML ML SQ SCH ×4 (09:41→21:15)
[2019-11-04] MEDS: PANTOPRAZOLE 40MG TABLET PO SCH (09:41)
[2019-11-04] MEDS: SPIRONOLACTONE 25 MG TABLET PO SCH (09:45)
[2019-11-04] MEDS: VITAMIN B COMPLEX 1 CAP PO SCH (09:46)
[2019-11-04] MEDS ORDERED: D50W 25 GM/50 ML SYRINGE/VIAL IV PRN (10:13)
[2019-11-04] MEDS ORDERED: GLUCAGON 1 MG/VIAL IM PRN (10:13)
--- NOTE | 2019-11-04 12:58 | PN ---
Subjective: Currently patient in sitting in a chair. He is eating breakfast. He has no chest pain, no abdominal pain. He continued to have a good urine output. No fever, no chills overnight. Objective: Vital Signs: Blood pressure 140/56, respiratory rate 17, pulse 60, temperature 97. General: The patient is alert and oriented x3. Does not look in any distress. HEENT: Atraumatic, normocephalic. PERRLA. Oral mucosa is moist. Neck: Supple. No JVD. No bruits. Chest: Clear to auscultation. Good air entry with fine crackles in the bases. Heart: Regular rate and rhythm. Sounds are normal. No gallop or murmur. Abdomen: Soft, nontender. No masses. Obese. Positive bowel sounds. No hepatosplenomegaly. Extremities: No clubbing or cyanosis, +1 edema with signs of stasis dermatitis. Neurologic: Grossly intact. Laboratory Data: CBC normal except for hemoglobin 8.9. Chemistry was normal except for BUN of 21, c reatinine 1.23, GFR 56, glucose 175 to 209. Assessment And Plan: 1.Acute respiratory failure secondary to acute on chronic systolic congestive heart failure exacerba tion. Patient improved significantly since admission. He is currently on fluid restriction of 1500 mL daily. Continue on Lasix 40 twice a day as well as Aldactone 25 mg daily. The patient has good u rine output. Repeat chest x-ray ordered, but still pending today. 2.Acute on chronic renal insufficiency. Creatinine is down to normal at 1.23 now. 3.Diabetes mellitus type 2. Hemoglobin A1c was around 8. Glucose in the range of 175 to 209 today. The patient was placed on 5 units of Lantus yesterday. I will increase it to 7 today. 4.Hypertension, well controlled overnight. Continue valsartan, Lasix. He is also on Flomax. 5.BPH. He is on Flomax. Good urine output. 6.Anemia of chronic disease secondary to renal insufficiency and multiple chronic disease. 7.Obstructive sleep apnea, on CPAP, continue. 8.History of atrial fibrillation, rate controlled. Continue on amiodarone 100 mg twice a day as wel l as Xarelto for anticoagulation. 9.Hyperlipidemia. We will continue Lipitor. 10.Anxiety. On BuSpar twice a day. 11.Gastroesophageal reflux disease prophylaxis, on Protonix. 12.Discharge plan will be hopefully tomorrow if patient accepted to rehab. Otherwise, [facility] will not accept the patient. They may have to go to SNF if they have . Social work hopefully in the a.m. to make discharge planning when patient is ready to be discharged. BARON Voice ID: [id number] Report ID: [id number]
--- NOTE | 2019-11-04 13:18 | RAD REPORT ---
EXAM DESCRIPTION: RAD - Chest Pa And Lat (2 Views) - 11/04/2019 1:12 pm CLINICAL HISTORY: chf COMPARISON: Chest Single View dated 11/01/2019; Chest Single View dated 10/30/2019; Chest Single View dated 10/27/2019 TECHNIQUE: Frontal and lateral views of the chest were obtained. FINDINGS: The lungs are normal volume. 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 Infiltrate and/ or atelectasis changes at each base are similar to prior imaging as well. Cardiac silhouette has impr gentry from prior imaging. Defibrillator remains in place. Pulmonary vasculature within normal limits. The diaphragms are flattened. No pleural effusion or pneumothorax seen. No acute bony finding noted. No aortic abnormality. IMPRESSION: Chronic fibrotic lung change with lung base infiltrate and/ or atelectasis similar to co mparison. Heart size and vasculature have decreased in prominence. Patient CHF pattern has improved.
[2019-11-04] MEDS: INSULIN GLARGINE 100 UNITS/ML SQ SCH (17:00)
[2019-11-04] MEDS: RIVAROXABAN 15 MG TABLET PO SCH (17:46)
[2019-11-04] MEDS: ATORVASTATIN 40 MG TAB PO SCH (21:16)
[2019-11-04] MEDS: MELATONIN 5 MG TABLET PO SCH (21:17)
[2019-11-05] MEDS: IPRATROPIUM BROM 0.5MG/2.5ML NEB SCH ×4 (01:35→19:35)
[2019-11-05] MEDS: ALBUTEROL 2.5 MG/3 ML NEB SOL NEB SCH ×4 (01:35→19:35)
[2019-11-05 05:08] LABS: Absolute Lymphocytes (CBC) 2.4 K/uL (0.7-4.9); Basophils % 0.5 % (0-1.3); Hematocrit 32.6 % (39.6-49.0); Lymphocytes % 20.4 % (15.3-44.8); MPV 8.9 fL (7.6-11.3); RBC Red Blood Cell Count 4.24 M/uL (4.33-5.43)
[2019-11-05 05:19] LABS: Albumin 2.9 g/dL (3.4-5.0); Bilirubin Total 0.6 mg/dL (0.2-1.0); Potassium 3.5 mmol/L (3.5-5.1); Protein, Total 6.1 g/dL (6.4-8.2)
[2019-11-05] MEDS: INSULIN -REGULAR HUMAN 50 UNIT/0.5 ML ML SQ SCH ×4 (08:31→20:39)
[2019-11-05] MEDS: SACUBITRIL/VALSARTAN 49/51 MG TAB PO SCH ×2 (08:40→20:39)
[2019-11-05] MEDS: ASCORBIC ACID 500 MG TABLET PO SCH (08:41)
[2019-11-05] MEDS: PANTOPRAZOLE 40MG TABLET PO SCH (08:41)
[2019-11-05] MEDS: VITAMIN B COMPLEX 1 CAP PO SCH (08:42)
[2019-11-05] MEDS: FINASTERIDE 5 MG TAB PO SCH (08:42)
[2019-11-05] MEDS: BUSPIRONE HCL 5 MG TABLET PO SCH ×2 (08:42→20:39)
[2019-11-05] MEDS: FUROSEMIDE 40 MG TABLET PO SCH ×2 (08:43→17:01)
[2019-11-05] MEDS: AMIODARONE HCL 200 MG TAB PO SCH ×2 (08:43→20:39)
[2019-11-05] MEDS: TAMSULOSIN 0.4 MG SR CAP PO SCH (08:43)
[2019-11-05] MEDS: MONTELUKAST 10 MG TAB PO SCH (08:43)
[2019-11-05] MEDS: HOME MED 1 EA UNK (Fluticasone/Umeclidin/Vilanter [Trelegy Ellipta 100-62.5-25] 1 EACH) IH SCH (08:44)
[2019-11-05] MEDS ORDERED: POTASSIUM CL SA 10 MEQ TAB PO ONE (09:00)
[2019-11-05] MEDS: SPIRONOLACTONE 25 MG TABLET PO SCH (11:35)
--- NOTE | 2019-11-05 14:29 | P.PN ---
Subjective Date of Service: 11/05/19 Primary Care Provider: Unknown Chief Complaint: Respiratory failure Subjective: No new changes, No C/O voiced Review of Systems 10-point ROS is otherwise unremarkable Physical Examination - Vital Signs Temperature: 97.3 F Blood Pressure: 103/49 Pulse: 71 Respirations: 20 Pulse Ox (%): 98 - Physical Exam General: Alert, Oriented x3, Obese (on ), Other (02 on 3 L -decreased to 2 L ) HEENT: Atraumatic, Normocephalic, PERRLA Neck: Supple, 2+ carotid pulse no bruit, No Thyromegaly Respiratory: Clear to auscultation bilaterally, Normal air movement, Crackles/ rales Cardiovascular: Regular rate/rhythm, Normal S1 S2, Edema (1= b/l ) Gastrointestinal: Normal bowel sounds, Soft and benign, No ascites Musculoskeletal: No clubbing, No contractures Neurological: Normal gait - Studies Laboratory Last Values WBC 11.9 K/uL (4.3-10.9) H D 11/05/19 04:13 RBC 4.24 M/uL (4.33-5.43) L 11/05/19 04:13 Hgb 9.7 g/dL (13.6-17.9) L 11/05/19 04:13 Hct 32.6 % (39.6-49.0) L 11/05/19 04:13 MCV 77.1 fL (80-100) L 11/05/19 04:13 MCH 22.9 pg (27.0-35.0) L 11/05/19 04:13 MCHC 29.7 g/dL (32.0-36.0) L 11/05/19 04:13 RDW 19.3 % (12.1-15.2) H 11/05/19 04:13 Plt Count 272 K/uL (152-406) 11/05/19 04:13 MPV 8.9 fL (7.6-11.3) 11/05/19 04:13 Neutrophils % 68.5 % (41.7-73.7) 11/05/19 04:13 Lymphocytes % 20.4 % (15.3-44.8) 11/05/19 04:13 Monocytes % 9.8 % (3.3-12.3) 11/05/19 04:13 Eosinophils % 0.8 % (0-4.4) 11/05/19 04:13 Basophils % 0.5 % (0-1.3) 11/05/19 04:13 Absolute Neutrophils 8.1 K/uL (1.8-8.0) H 11/05/19 04:13 Absolute Lymphocytes 2.4 K/uL (0.7-4.9) 11/05/19 04:13 Absolute Monocytes 1.2 K/uL (0.1-1.3) 11/05/19 04:13 Absolute Eosinophils 0.1 K/uL (0-0.5) 11/05/19 04:13 Absolute Basophils 0.1 K/uL (0-0.5) 11/05/19 04:13 PT 23.0 SECONDS (9.5-12.5) H 10/30/19 11:00 INR 2.00 10/30/19 11:00 pH 7.43 (7.35-7.45) 10/31/19 16:03 pCO2 55.6 mmHG (35-45) H 10/31/19 16:03 pO2 62.2 mmHG (75-100) L 10/31/19 16:03 HCO3 35.9 mmol/L (22-28) H 10/31/19 16:03 Base Excess 11.0 mmol/L 10/31/19 16:03 Oxyhemoglobin 89.0 % (94-97) L 10/31/19 16:03 ABG O2 Sat (Measured) 89.7 % (92-98.5) L 10/31/19 16:03 ABG Carboxyhemoglobin 0.4 % (0-1.5) 10/31/19 16:03 ABG Methemoglobin 0.4 % (0-1.5) 10/31/19 16:03 Other Total Hgb 9.1 g/dl (12-18) L 10/31/19 16:03 Inspired O2 32.0 % 10/31/19 16:03 Sodium 140 mmol/L (136-145) 11/05/19 04:13 Potassium 3.5 mmol/L (3.5-5.1) 11/05/19 04:13 Chloride 103 mmol/L (98-107) 11/05/19 04:13 Carbon Dioxide 33 mmol/L (21-32) H 11/05/19 04:13 BUN 18 mg/dL (7-18) 11/05/19 04:13 Creatinine 1.26 mg/dL (0.55-1.3) 11/05/19 04:13 Estimated GFR 55 mL/min (=/>90) L 11/05/19 04:13 Glucose 150 mg/dL (74-106) H 11/05/19 04:13 POC Glucose 265 mg/dl (65-120) H 11/05/19 11:20 Hemoglobin A1c 8.0 % (4.2-6.3) H 11/01/19 04:50 Lactic Acid 1.1 mmol/L (0.4-2.0) 10/30/19 12:45 Calcium 8.6 mg/dL (8.5-10.1) 11/05/19 04:13 Phosphorus 3.1 mg/dL (2.5-4.9) 11/04/19 06:34 Magnesium 2.1 mg/dL (1.8-2.4) 11/03/19 06:00 Iron 18.0 ug/dL (65-175) L 10/31/19 04:58 TIBC 377 ug/dL (250-460) 10/31/19 04:58 Transferrin 269 mg/dL (200-360) 10/31/19 04:58 Transferrin % Sat 4.8 % (20.0-50.0) L 10/31/19 04:58 Ferritin 11.3 ng/mL (26-388) L 10/31/19 04:58 Total Bilirubin 0.6 mg/dL (0.2-1.0) 11/05/19 04:13 Direct Bilirubin 0.2 mg/dL (0-0.2) 10/30/19 11:00 AST 26 U/L (15-37) 11/05/19 04:13 ALT 34 U/L (12-78) 11/05/19 04:13 Alkaline Phosphatase 92 U/L (45-117) 11/05/19 04:13 Rapid Troponin I < 0.02 ng/mL (0.0-0.045) 10/30/19 11:00 NT-Pro-B Natriuret Pep 121 pg/mL (<450) 10/30/19 11:00 Serum Total Protein 6.1 g/dL (6.4-8.2) L 11/05/19 04:13 Albumin 2.9 g/dL (3.4-5.0) L 11/05/19 04:13 Globulin 3.2 g/dL (2.3-3.5) 11/05/19 04:13 Albumin/Globulin Ratio 0.9 (1.1-1.8) L 11/05/19 04:13 Vitamin B12 582 pg/mL (193-986) 10/31/19 04:58 Procalcitonin < 0.05 ng/mL (<0.50) 10/31/19 04:58 TSH 0.470 uIU/mL (0.360-3.740) 10/30/19 11:00 Urine Color Cancelled 10/30/19 14:03 Urine Appearance Cancelled 10/30/19 14:03 Urine pH 5.0 (5.0-7.0) 10/30/19 11:51 Ur Specific Bivalve 1.015 (1.005-1.030) 10/30/19 11:51 Urine Ketones Negative (NEG) 10/30/19 11:51 Urine Blood Negative (NEG) 10/30/19 11:51 Urine Nitrite Negative (NEG) 10/30/19 11:51 Urine Bilirubin Cancelled 10/30/19 14:03 Urine Urobilinogen Cancelled 10/30/19 14:03 Ur Leukocyte Esterase Negative (NEG) 10/30/19 11:51 Ur Microscopic Review Cancelled 10/30/19 14:03 Urine Glucose Negative (NEG) 10/30/19 11:51 Urine Total Protein Negative (NEG) 10/30/19 11:51 Microbiology Data (last 24 hrs): 10/30/19 11:00 Blood - Blood Aerobic Blood Culture - Final No growth in 5 days. 10/30/19 11:00 Blood - Blood Anaerobic Blood Culture - Final No growth in 5 days. 10/30/19 10:18 Blood - Blood Aerobic Blood Culture - Final No growth in 5 days. 10/30/19 10:18 Blood - Blood Anaerobic Blood Culture - Final Medications List Reviewed: Yes Assessment & Plan - Problems (Diagnosis) (1) CHF exacerbation Current Visit: Yes Status: Acute (2) HTN (hypertension) Current Visit: Yes Status: Acute (3) Weakness Current Visit: Yes Status: Acute Physician Review: Patient Assessed, Agree with Above Assessment and Plan Physician Review Additional Text: Impression: Acute respiratory failure likely related to acute on chronic systolic CHF exacerbation Acute on chronic renal failure stage III Diabetes mellitus type 2 insulin dependent Obstructive sleep apnea on CPAP Anemia of chronic disease History of A Fib on chronic anticoagulation BPH Hyperlipidemia Anxiety GERD COPD Plan: improving volume status - will c/w lasix diuretics -02 weaned down to 2 L today -c/w ISSS - follow plan for SNF when bed available others Acute on chronic renal failure stage III: Will monitor closely. Continue with fluid restriction. Diabetes mellitus type 2 insulin dependent: Accu-Cheks in place. Will monitor closely. Insulin sliding scale to be continued. A1c 8.0 Obstructive sleep apnea on CPAP: Will need to continue with CPAP at night. Anemia of chronic disease: Will monitor. Will check iron and B12. History of A fib on chronic anticaogulation: Continue medication-amiodarone 100 mg twice daily and Xarelto 15 mg daily. . BPH: Continue with Flomax 0.4 mg daily Hyperlipidemia: Continue Lipitor 40 mg daily Anxiety: Continue Buspar 5 mg 1 pill twice daily GERD: Continue Protonix 20 mg daily COPD: Continue with current COPD medication
[2019-11-05] MEDS: INSULIN GLARGINE 100 UNITS/ML SQ SCH (17:01)
[2019-11-05] MEDS: RIVAROXABAN 15 MG TABLET PO SCH (17:02)
[2019-11-05] MEDS: ATORVASTATIN 40 MG TAB PO SCH (20:39)
[2019-11-05] MEDS: MELATONIN 5 MG TABLET PO SCH (20:39)
[2019-11-06] MEDS: IPRATROPIUM BROM 0.5MG/2.5ML NEB SCH ×4 (03:15→19:50)
[2019-11-06] MEDS: ALBUTEROL 2.5 MG/3 ML NEB SOL NEB SCH ×4 (03:15→19:50)
[2019-11-06 06:24] LABS: Absolute Lymphocytes (CBC) 1.7 K/uL (0.7-4.9); Basophils % 0.5 % (0-1.3); Hematocrit 28.8 % (39.6-49.0); Lymphocytes % 15.8 % (15.3-44.8); MPV 8.3 fL (7.6-11.3)
[2019-11-06 06:31] LABS: Albumin 2.6 g/dL (3.4-5.0); Bilirubin Total 0.5 mg/dL (0.2-1.0); Potassium 3.6 mmol/L (3.5-5.1); Protein, Total 5.4 g/dL (6.4-8.2)
[2019-11-06] MEDS: INSULIN -REGULAR HUMAN 50 UNIT/0.5 ML ML SQ SCH ×4 (07:30→21:00)
[2019-11-06] MEDS ORDERED: POTASSIUM 25 MEQ EFFERV TAB PO ONE (07:31)
[2019-11-06 07:53] LABS: Magnesium 2.1 mg/dL (1.8-2.4); Phosphorus 3.2 mg/dL (2.5-4.9)
[2019-11-06] MEDS ORDERED: MAGNESIUM SULFATE 1 gm IVPB 1 GM/100 ML BAG IV ONE (08:09)
[2019-11-06] MEDS: HOME MED 1 EA UNK (Fluticasone/Umeclidin/Vilanter [Trelegy Ellipta 100-62.5-25] 1 EACH) IH SCH (09:00)
[2019-11-06] MEDS: MONTELUKAST 10 MG TAB PO SCH (09:31)
[2019-11-06] MEDS: FINASTERIDE 5 MG TAB PO SCH (09:31)
[2019-11-06] MEDS: BUSPIRONE HCL 5 MG TABLET PO SCH ×2 (09:31→20:59)
[2019-11-06] MEDS: AMIODARONE HCL 200 MG TAB PO SCH ×2 (09:31→20:59)
[2019-11-06] MEDS: ASCORBIC ACID 500 MG TABLET PO SCH (09:31)
[2019-11-06] MEDS: TAMSULOSIN 0.4 MG SR CAP PO SCH (09:31)
[2019-11-06] MEDS: FUROSEMIDE 40 MG TABLET PO SCH ×2 (09:32→17:46)
[2019-11-06] MEDS: VITAMIN B COMPLEX 1 CAP PO SCH (09:32)
[2019-11-06] MEDS: SPIRONOLACTONE 25 MG TABLET PO SCH (09:32)
[2019-11-06] MEDS: PANTOPRAZOLE 40MG TABLET PO SCH (09:32)
[2019-11-06] MEDS: SACUBITRIL/VALSARTAN 49/51 MG TAB PO SCH ×2 (09:32→20:59)
[2019-11-06] MEDS: INSULIN GLARGINE 100 UNITS/ML SQ SCH (17:46)
[2019-11-06] MEDS: RIVAROXABAN 15 MG TABLET PO SCH (17:46)
--- NOTE | 2019-11-06 18:03 | PN ---
Date of Progress Note: 11/06/2019 Subjective: The patient seen and examined. Chart reviewed and case discussed with RN. Patient justin es any specific complaints. States he is feeling better. Code Status: Full. Medications: List reviewed. Physical Examination: Vital Signs: Temperature 97.4, heart rate 75, blood pressure 110/54, respirations 17, O2 93% on 3 L via nasal cannula. General: Awake, alert, oriented x3. Elderly male, morbidly obese. CV: S1, S2. Regular rate and rhythm. Peripheral pulses present. Respiratory: Diminished breath sounds. No wheezing or stridor. Gastrointestinal: Abdomen is soft, nontender, nondistended. Positive bowel sounds. Extremities: No clubbing or cyanosis. Patient has peripheral edema. Neurologic: Nonfocal. Laboratory Data: Sodium 142, potassium 3.6, chloride 103, CO2 32, BUN 13, creatinine 1.22, glucose 1 75, calcium 8.3, phosphorus 3.2, magnesium 2.1, and albumin 2.6. WBC 10.5, H and H 8.9 and 28.8, brenda telets 263. Blood cultures, no growth to date. Urine culture, no growth. Assessment And Plan: 1.Acute respiratory failure secondary to congestive heart failure exacerbation, improving, currently on 3 L via nasal cannula. 2.Acute on chronic systolic congestive heart failure exacerbation. Continue with diuretics. Contin ue congestive heart failure guidelines. Monitor I's and O's, free fluid restriction. 3.Acute on chronic kidney injury, stage 3. We will continue to monitor creatinine level. Avoid NSA IDs. 4.Diabetes mellitus type 2, insulin dependent with hyperglycemia. We will continue with sliding sca le insulin. Monitor blood glucose levels. 5.Obstructive sleep apnea, on CPAP. 6.Anemia of chronic disease. We will continue to monitor H and H, transfuse as needed. 7.History of atrial fibrillation, on chronic anticoagulation, paroxysmal. 8.Benign prostatic hypertrophy, stable. 9.Mixed hyperlipidemia. Continue statin. 10.Generalized anxiety disorder, stable. 11.Gastroesophageal reflux disease. 12.Chronic obstructive pulmonary disease. We will continue with nebulizer treatments and supplement al oxygen. Plan: Discharge to nursing home facility once accepted, was denied inpatient rehab by [facility]. /ELY Voice ID: [id number] Report ID: [id number]
[2019-11-06] MEDS: MELATONIN 5 MG TABLET PO SCH (20:59)
[2019-11-06] MEDS: ATORVASTATIN 40 MG TAB PO SCH (20:59)
[2019-11-07] MEDS: ALBUTEROL 2.5 MG/3 ML NEB SOL NEB SCH ×3 (02:00→13:35)
[2019-11-07] MEDS: IPRATROPIUM BROM 0.5MG/2.5ML NEB SCH ×3 (02:00→13:35)
[2019-11-07 06:05] LABS: Absolute Lymphocytes (CBC) 1.6 K/uL (0.7-4.9); Basophils % 0.4 % (0-1.3); Hematocrit 29.2 % (39.6-49.0); Lymphocytes % 16.6 % (15.3-44.8); MPV 8.6 fL (7.6-11.3); RBC Red Blood Cell Count 3.83 M/uL (4.33-5.43)
[2019-11-07 06:22] LABS: Potassium 3.7 mmol/L (3.5-5.1)
[2019-11-07] MEDS: PANTOPRAZOLE 40MG TABLET PO SCH (07:48)
[2019-11-07] MEDS: BUSPIRONE HCL 5 MG TABLET PO SCH (07:49)
[2019-11-07] MEDS: FINASTERIDE 5 MG TAB PO SCH (07:49)
[2019-11-07] MEDS: MONTELUKAST 10 MG TAB PO SCH (07:49)
[2019-11-07] MEDS: FUROSEMIDE 40 MG TABLET PO SCH (07:49)
[2019-11-07] MEDS: AMIODARONE HCL 200 MG TAB PO SCH (07:49)
[2019-11-07] MEDS: SPIRONOLACTONE 25 MG TABLET PO SCH (07:50)
[2019-11-07] MEDS: ASCORBIC ACID 500 MG TABLET PO SCH (07:50)
[2019-11-07] MEDS: VITAMIN B COMPLEX 1 CAP PO SCH (07:50)
[2019-11-07] MEDS: TAMSULOSIN 0.4 MG SR CAP PO SCH (07:50)
[2019-11-07] MEDS: SACUBITRIL/VALSARTAN 49/51 MG TAB PO SCH (07:50)
[2019-11-07] MEDS: INSULIN -REGULAR HUMAN 50 UNIT/0.5 ML ML SQ SCH ×2 (07:51→11:39)
[2019-11-07] MEDS: HOME MED 1 EA UNK (Fluticasone/Umeclidin/Vilanter [Trelegy Ellipta 100-62.5-25] 1 EACH) IH SCH (07:51)
[2019-11-07 08:46] VITALS: O2SAT 93
[2019-11-07] MEDS ORDERED: POTASSIUM CL SA 10 MEQ TAB PO ONE (09:00)
[2019-11-07 16:09] VITALS: BP 105/51; TEMP 97.5
[2019-11-07] MEDS ORDERED: carvediloL 12.5 MG TAB PO SCH (21:00)
--- NOTE | 2019-11-07 21:21 | DS ---
Date of Discharge: 11/07/2019 Consultants: 1.Dr. Jesus and Dr. Vázquez with Cardiology. 2.Dr. Schaeffer with Pulmonology. Admitting Diagnoses: 1.Acute respiratory failure with hypoxia. 2.Acute congestive heart failure exacerbation. 3.Acute chronic obstructive pulmonary disease exacerbation. 4.Acute kidney injury. 5.Diabetes mellitus type 2 with hyperglycemia, insulin requiring. 6.Essential hypertension, stable. Blood pressure on the low side. 7.Generalized weakness. Discharge Diagnoses: 1.Acute respiratory failure with hypoxia, improved. 2.Acute congestive heart failure exacerbation, systolic dysfunction, improving. 3.Acute chronic obstructive pulmonary disease exacerbation, improved. 4.Acute on chronic kidney injury, stage III. 5.Diabetes mellitus type 2, insulin dependent with hyperglycemia, stable. 6.Obstructive sleep apnea, on CPAP. 7.Anemia of chronic disease, stable. 8.History of atrial fibrillation, on chronic anticoagulation, paroxysmal. 9.Benign prostatic hypertrophy, stable. 10.Mixed hyperlipidemia, on statin. 11.Generalized anxiety disorder, stable. 12.Gastroesophageal reflux disease without esophagitis. 13.Morbid obesity, BMI of 40. 14.Hypertensive heart disease. Hospital Course: The patient is an 84-year-old male with multiple chronic medical conditions includi ng COPD, CHF, diabetes, history of CVA, comes in with shortness of breath. Patient was found to have CHF and chronic obstructive pulmonary disease exacerbation. His chest x-ray showed volume overload. Patient was placed on BiPAP and admitted to the ICU. Patient was able to be weaned off the ICU. P ulmonology and Cardiology were consulted. Patient was started on diuretics, CHF guidelines, nebulize r treatments, steroids. Overall, patient did well. He remained weak and did start working with Phys ical Therapy. His chest x-ray showed chronic fibrotic lung changes. His CHF pattern did improve wit h treatment. Initially, his Coreg was held due to hypotension. Patient currently is on Entresto, Al dactone for his CHF. Echocardiogram was done, which showed EF of 75% and left ventricular hypertroph y. 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 Patient overall did well. He wa s initially referred to inpatient rehab, however was denied by [facility]. Patient did not w swati to go to residential facility and therefore was sent back to assisted living facility with PT . His cultures remained negative. He was then cleared for discharge from [employer]'s standpoint. He will need to follow up with his primary care physician in 2-3 days. He will need to follow up wit h his cam specialist and have his fluid intake monitored. He is on a 1500 mL restriction per day. He should also restrict his sodium to 2 g in a day. Followup: With Dr. Jesus in 2 weeks. Follow up with environmental air specialist, Dr. Schaeffer, in 2-4 weeks. R eturn to ER for worsening condition. Activity: Fall precautions. Medications: As per medication reconciliation list. Patient is to follow up with Cardiology regardi ng his Coreg dose to be resumed. Currently, he is on multiple medications, which have decreased his blood pressure. May need to reduce his dose of Coreg in the future. Physical Examination: General: Awake, alert, and oriented x3. Elderly male, morbidly obese. CV: S1, S2. Respiratory: Moving air well bilaterally. Abdomen: Abdomen is soft, nontender, nondistended. Positive bowel sounds. Extremities: No clubbing, cyanosis. 1+ lower extremity edema. Neurologic: Nonfocal. Total time spent discharging the patient was 37 minutes. /ELY Voice ID: [id number] Report ID: [id number]
== END 2019-11-07 16:46 | disposition home health service (06) | DRG 291 ==
LOC: ER 10:12 → ERHOLD 14:01 → 3RD-ICU 17:13 → 4TH 11-01 12:06
PROVIDERS: ADMIT Internal Medicine; ATTEND Family Medicine
PROC: 5A09557 Assistance with Respiratory Ventilation, Greater than 96 Consecutive Hours, Continuous Positive Airway Pressure (ICD-10-PCS; principal; 2019-10-30)
DX: I50.23 Acute on chronic systolic (congestive) heart failure (principal); J96.01 Acute respiratory failure with hypoxia; I13.0 Hypertensive heart and chronic kidney disease with heart failure and stage 1 through stage 4 chronic kidney disease, or unspecified chronic kidney disease; J44.1 Chronic obstructive pulmonary disease with (acute) exacerbation; N17.9 Acute kidney failure, unspecified; I48.20 Chronic atrial fibrillation, unspecified; Z68.41 Body mass index [BMI] 40.0-44.9, adult; N18.3 Chronic kidney disease, stage 3 (moderate); G47.33 Obstructive sleep apnea (adult) (pediatric); E11.65 Type 2 diabetes mellitus with hyperglycemia; E11.22 Type 2 diabetes mellitus with diabetic chronic kidney disease; E78.2 Mixed hyperlipidemia; N40.0 Benign prostatic hyperplasia without lower urinary tract symptoms; F41.1 Generalized anxiety disorder; K21.9 Gastro-esophageal reflux disease without esophagitis; E66.01 Morbid (severe) obesity due to excess calories; Z99.81 Dependence on supplemental oxygen; Z86.73 Personal history of transient ischemic attack (TIA), and cerebral infarction without residual deficits; Z79.01 Long term (current) use of anticoagulants; Z79.4 Long term (current) use of insulin
CPT/HCPCS: 36415; 51702; 70450; 71045; 71046; 80048; 80053; 80076; 81003; 82607; 82728; 82805; 82947; 83036; 83540; 83605; 83735; 83880; 84100; 84145; 84443; 84466; 84484; 85025; 85610; 87040; 87070; 87077; 87081; 87086; 87088; 87184; 87186; 87205; 87804; 93005; 93280; 93306; 94640; 94660; 94760; 96365; 96366; 96374; 96375; 97110; 97112; 97116; 97161; 97530; 99285; J0696; J1650; J1815; J1940; J2930; J3475; J7030